=== PATIENT | male | born 1945 | race Caucasian/White ===

== ENCOUNTER 2023-09-25 12:00 | Outpatient (REF) | payer BC, SELFPAY | END 2023-09-25 12:01 | disposition home or self-care (01) | LOC: NFLDREF 12:00 | PROVIDERS: Visit Provider Nurse Practitioner | DX: R31.9 Hematuria, unspecified (principal); N30.01 Acute cystitis with hematuria | CPT/HCPCS: 87086 ==

== ENCOUNTER 2024-10-25 13:50 | Emergency (ER) | payer MEDICARE, SELFPAY ==
[2024-10-25] VITALS (11 sets, daily range): BP systolic 92–129; BP diastolic 68–78; PULSE 64–98; RESP 11–19; TEMP 35.8; O2SAT 95–98; BMI 29.8
--- OUTSIDE RECORDS SUMMARY | 2024-10-25 13:53 | XMS_ITS | Encounter Summary ---
Author Organization [facility] Address [address] [address] Phone Care Team Providers Care C D Still Operator Name Role Phone Juno Isaac MD Primary Care Provider [phone] Guillermo Lomeli MD Primary Care Provider [phone] Encounter Details Date Type Department Care Team (Late st Contact Info) Description 07/08/2022 Prep for Procedure [address] [place] [address] CLINIC ELECTROPHSIOLOGY [address] [place] [address] [id number] Brennen Reich PA-C [address] [place] [address] [phone] Social History Tobacco Use Types Packs/Day Years Used Date Smoking Tobacco: Never Smokeless Tobacco: Former Comments:no exposer to 2nd h and smoke Alcohol Use Standard Drinks/Week Comments Yes 1 (1 standard drink = 0.6 oz pur e alcohol) dash donald Humiliation, Afraid, Rape, and Kick questionnair e Answer Date Recorded Within the last year, have y ou been afraid of your partner or ex-partner? No 09/21/2019 Within the last year, have y ou been humiliated or emotionally abused in other ways by your partner or ex-partner? No 09/21/2019 Within the last year, have y ou been kicked, hit, slapped, or otherwise physically hurt by your partner or ex-partner? No 09/21/2019 Sexually Abused Not on file 09/21/2019 Social Connection and Isolation Panel [NHANES] A nswer Date Recorded In a typical week, how many times do you talk on the phone with family, friends, or neighbors? Three times a week 09/21/2019 How often do you get togethe r with friends or relatives? Twice a week 09/21/2019 How often do you attend chur ch or religion services? Never 09/21/2019 Do you belong to any clubs o r organizations such as zoroastrian groups, unions, fraternal or athletic groups, or school groups? Yes 09/21/2019 Attends Club or Organization Meetings Not on ivania e 09/21/2019 Are you , , di vorced, , never , or living with a partner? 09/21/2019 AUDIT-C Answer Date Recorded Q1: How often do you have a drink containing alc ohol? 2-4 times a month 09/21/2019 Q2: How many drinks containi ng alcohol do you have on a typical day when you are drinking? 1 or 2 09/21/2019 Q3: How often do you have si x or more drinks on one occasion? Never 09/21/2019 Overall Financial Resource Strain (CARDIA) Answe r Date Recorded How hard is it for you to pa y for the very basics like food, housing, medical care, and heating? Not hard at all 09/21/2019 PHQ-2 Answer Date Recorded PHQ-2 Total 0 06/11/2022 [facility] - Occupational Stress Questionnaire Answer Date Recorded Do you feel stress - tense, restless, nervous, or anxious, or unable to sleep at night because your mind is troubled all the time - these days? Not at all 09/21/2019 Exercise Vital Sign Answer Date Recorde d On average, how many days pe r week do you engage in moderate to strenuous exercise (like a brisk walk)? 2 days 09/21/2019 On average, how many minutes do you engage in exercise at this level? 30 min 09/21/2019 Hunger Vital Sign Answer Date Recorded Within the past 12 months, y ou worried that your food would run out before you got the money to buy more. Never true 09/21/19 20 Within the past 12 months, t he food you bought just didn't last and you didn't have money to get more. Never true 09/21/2019 PRAPARE - Transportation Answer Date Re corded In the past 12 months, has l ack of transportation kept you from medical appointments or from getting medications? No 09/09 In the past 12 months, has l ack of transportation kept you from meetings, work, or from getting things needed for daily living? No 09/21/2019 Education Answer Date Recorded What is the highest level of school you have completed or the highest degree you have received? Associate degree: occupational, technical, or vocational program 09/21/2019 Sex and Gender Information Value Date Recorded Sex Assigned at Not on file Legal Sex Male 2:55 PM EDGE STITCHER Gender Identity Not on file Sexual Orientation Not on file Occupation Industry Job Start Date Job End Date retire Not on file Not on file Not on file COVID-19 Exposure Response Date Recorded In the last 10 days, have yo u been in contact with someone who was confirmed or suspected to have Coronavirus/COVID-19? No / Unsure 07/06/2022 1:47 PM EDGE STITCHER documented as of this encounter Plan of Treatment Not on file documented as of this encounter Visit Diagnoses Not on filedocumented in this encounter Additional Health Concerns Infection Onset Date Last Indicated Resolved Time R/O Respiratory Pathogens 07/13/2022 07/13/2022 2:39 PM EDGE STITCHER R/O COVID-19 07/13/2022 07/13/2022 07/13/2022 2:39 PM EDGE STITCHER COVID-19 Confirmed 07/13/2022 07/31/2022 3 11:06 PM EDGE STITCHER documented as of this encounter Care Teams C D Still Operator Relationship Specialty Start Date End Date Juno Isaac MD [address] [place] [id number] PCP - General Family Medicine 11/30/14 04/30/24 Guillermo Lomeli MD [address] [place] [address] PCP - General Family Medicine 05/01/24 documented as of this encounter
--- OUTSIDE RECORDS SUMMARY | 2024-10-25 13:53 | XMS_ITS | Clinical Summary ---
Author Organization [facility] Address [address] [place] [address] Care Team Providers Care Retail Client Solutions Consultant Name Role Phone Votel, Guillermo Pacheco MD Primary Care Provider + Allergies Active Allergy Reactions Criticality Noted Date Comments Levofloxacin Hives High 09/15/2022 Unlisted Allergen (Include Detail In Comments) Headache Medium 09/21/2019 Beer. Caused severe headache, nausea, Beer. Caused severe headache, nausea, Medications MULTIVITAMIN ORAL Take 1 Tablet by mouth once daily in the evening. Active SAW PALMETTO ORAL Take by mouth once daily in the evening. 0 09/15/19 23 Active furosemide (LASIX) 20 mg tabletIndications: Typical atrial flutter (HC),History of cardiac radiofrequency ablation Take 1 Tablet (20 mg) by mouth once daily if needed (Goal weight 195. Take for weight increase by 3lbs in one day or 5 lbs in one week). 90 Tablet 1 10/09/19 23 Active fenofibrate (LOFIBRA) 54 mg tabletIndications: Hyperlipidemia, unspecified hyperlipidemia type Take 1 Tablet (54 mg) by mouth once daily with a meal. 90 Tablet 3 11/09/19 24 Active Terazosin HCl 10 mg capsuleIndications :HTN (hypertension) Take 1 Capsule (10 mg) by mouth at bedtime. 90 Capsule 3 11/09/19 24 Active rivaroxaban (XARELTO) 20 mg tabletIndications: PAF (paroxysmal atrial fibrillation) (HC) Take 1 Tablet (20 mg) by mouth once daily with evening meal. 90 Tablet 3 11/09/19 24 Active sotaloL (BETAPACE) 80 mg tabletIndications: Paroxysmal atrial flutter (HC),Paroxysmal atrial fibrillation (HC) Take 1 Tablet (80 mg) by mouth every 12 hours. 180 Tablet 3 02/28/20 24 Active amLODIPine (NORVASC) 5 mg tabletIndications: HTN (hypertension) Take 1 Tablet (5 mg) by mouth once daily. 90 Tablet 3 06/26/20 24 Active dilTIAZem (CARDIZEM) 30 mg tabletIndications: PAF (paroxysmal atrial fibrillation) (HC) Take 1 tablet as needed for atrial fibrillation Can repeat hour later in needed. 15 Tablet 1 09/29/19 25 Active CPAPIndications:OS A (obstructive sleep apnea) RESMED CPAP (E0601) machine for home use at pressure: 5cmw, Choice of mask (A7030 or A7034) w/full face cushion (A7031) x1/mo, nasal cushion (A7032) x2/mo, or nasal pillows (A7033) x 2/mo; Length of Need: 99 months; Frequency of use: Daily 1 Each 11 10/03/19 25 Active dilTIAZem (CARDIZEM) 30 mg tabletIndications: PAF (paroxysmal atrial fibrillation) (HC) Take 1 tablet as needed for atrial fibrillation Can repeat hour later in needed. 15 Tablet 1 11/09/19 24 025 Discontin ued(Reord er (E-cancel not sent)) Active Problems Problem Noted Date Diagnosed Date Acute on chronic diastolic (congestive) heart fa ilure 07/11/2024 Chronic diastolic (congestive) heart failure 10/2023 Infrarenal abdominal aortic aneurysm (AAA) witho ut rupture 10/27/2023 Assessment & Plan (07/11/2024 1:25 PM OYSTER GRADER): Repeat abdomen ultrasound October 2026 A-fib 07/20/2023 High cholesterol 07/20/2023 HTN (hypertension) 07/20/2023 BPH (benign prostatic hyperplasia) 07/20/2023 Encounters Date Type Department Care Team Description 10/25/2024 9:50 AM CDT Nurse/Clinic Staff Only [facility] [address] [place] [address] Cardiovascular Diagnostic Testing (12 lead done for MHI) 10/25/2024 Orders Only [facility] [address] [place] [address] Ellen Esquivel MD 1 scan: (1-Ord) NFLD-EKG-10/25/24 10/25/2024 Travel 10/24/2024 Telephone [facility] [address] [place] [address] Ellen Esquivel MD Error-please disregard 10/24/2024 Telephone [facility] [address] [place] [address] Ellen Esquivel MD Atrial Fibrillation 10/03/2024 4:00 PM OYSTER GRADER Office Visit [facility] [address] [place] [address] Augustine Coburn MD Sleep Consult 10/03/2024 Travel 10/02/2024 Orders Only [facility] Scanner 1 scan: (1-Ord) RESNED, COMPLIANCE REPORT 1-26-25 - 2-24-25, 10/02/2024 09/29/2024 Telephone [facility] [place] [address] [place] [address] Ellen Esquivel MD Refill Request 09/11/2024 1:00 PM OYSTER GRADER Office Visit [facility] [address] [place] [address] Sim Helms MD Musculoskeletal Problem (Follow up bilateral shoulder pain ) 09/11/2024 Travel 07/27/2024 Telephone [facility] [address] [place] [address] Ellen Esquivel MD Blood Pressure from Last 3 Months Immunizations Immunization Administration Dates Next Due COVID-19 vaccine (Moderna 100mcg/0.5mL) [facility] [place] 10/01/2020,09/03/2020 Pneumococcal Poly,23-Valent (Pneumovax) 08/30/19 14 Pneumococcal conj 13-Valent (Prevnar 13) 018 Td (Age >=7 Years) 11/27/1996,02/27/1993 Tdap, Unspecified 06/16/2021,05/07/2010 Family History Medical History Relation Name Comments Diabetes Brother Indra Lung cancer Father Skin cancer Maternal Grandmother Rupesh Heart failure Mother Relation Name Status Comments Brother Indra Alive Father Maternal Grandmother Rupesh Alive Mother Social History Tobacco Use Types Packs/Day Years Used Date Smoking Tobacco: Never Smokeless Tobacco: Never Tobacco Cessation:Counseling Given: Yes Alcohol Use Standard Drinks/Week Comments Not Currently 0 (1 standard drink = 0.6 oz pur e alcohol) rare PHQ-2 Answer Date Recorded PHQ-2 TOTAL SCORE 0 07/11/2024 Social Connections Answer Date Recorded Do you often feel lonely or isolated from those around you? 0 07/11/2024 Financial Resource Strain Answer Date R ecorded Difficulty of Paying Living Expenses 3 07/11/2024 Difficulty of Paying Living Expenses Not on file 07/11/2024 Food Insecurity Answer Date Recorded Do you worry your food will run out before you are able to buy more? 1 07/11/2024 Transportation Needs Answer Date Record ed Does lack of transportation keep you from medica l appointments? 1 07/11/2024 Does lack of transportation keep you from work, meetings or getting things that you need? 1 07/11/2024 Housing Stability Answer Date Recorded What is your housing situation today? 1 07/11/2024 Utilities Answer Date Recorded Do you have trouble paying f or utilities (for example, heat, electricity, water, phone)? 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 Not on file Not on file Obstetrics History Last Filed Vital Signs Vital Sign Reading Time Taken Comments Blood Pressure 124/80 10/25/2024 10:10 AM CDT Pulse 84 10/25/2024 10:10 AM CDT variable rate in afib/aflutter on 12 lead Temperature 36.7 C (98.1 F) 09/11/2024 1:06 PM OYSTER GRADER Respiratory Rate 16 12/08/2023 12:4 0 PM CDT Oxygen Saturation 97% 10/25/2024 10: 10 AM CDT Inhaled Oxygen Concentration - - Weight 102 kg (224 lb 12.8 oz) 10/03/2024 3:49 PM OYSTER GRADER Height 182.5 cm (5' 11.85) 10/03/2024 3:49 PM OYSTER GRADER Body Mass Index 30.62 10/03/2024 3:49 PM OYSTER GRADER Plan of Treatment Health Maintenance Due Date Last Done Comments Hepatitis C screening for ag e 18-79 1963 Zoster (shingles) series for age 50+ (1 of 2) 1995 RSV vaccine for adults or (1 - 1-dose 75+ series) 2020 COVID-19 vaccine series ( season) 2024 10/01/2020, 09/03/2020 Influenza Vaccine (#1) 2024 Depression screening for age 12+ 07/11/2025 07/11/20, 10/12/2023 Medicare Wellness for age 65+ 07/12/2025 07/11/2024, 07/20/2023 BMI (ht and wt on same day) for age 18+ 10/03/2025 10/03/2024, 07/11/2024, 10/12/2023, Additional history exists Tetanus booster 06/16/2031 06/16/2021, 04/10, 11/27/1996, Additional history exists Pneumococcal series for age 50+ Completed 8, 08/30/2013 Tdap Completed 06/16/2021, 05/07/2010 Procedures Procedure Name Priority Date/Time Associated Diagnosis Comments EKG 12 LEAD Routine 10/25/2024 11:55 AM CDT Chronic atrial fibrillation (HC) SCAN-DIAGNOSTIC REPORT 10/02/2024 12:00 AM OYSTER GRADER from Last 3 Months Results * EKG 12 LEAD (10/25/2024 11:55 AM CDT) us Ellen Esquivel MD EKG ORD Final R esult * SCAN-DIAGNOSTIC REPORT (10/02/2024 12:00 AM OYSTER GRADER) us Scanner OTHER Final Result from Last 3 Months Insurance BLUE CROSS MEDICARE ADVANTAGE MR MEDICARE PART A HB ONLY Advance Directives * Full Code (Latest Code Status on File) Date Activated Date Inactivated Comments 12/08/2023 10:03 AM 12/08/2023 2:49 PM Question Answer Comments Code Status Discussion: Unable to Assess Preferences, Provider to review later * Full Code Date Activated Date Inactivated Comments 12/08/2023 10:03 AM 12/08/2023 10:03 AM Question Answer Comments Code Status Discussion: Unable to Assess Preferences, Provider to review later * Full Code Date Activated Date Inactivated Comments 09/16/2022 9:25 AM 09/16/2022 3:34 PM Question Answer Comments Code Status Discussion: Other Care Teams Retail Client Solutions Consultant Relationship Specialty Start Date End Date Votel, Guillermo Pacheco MD [address] [place] [address] PCP - General Family Practice 01/18/24
--- OUTSIDE RECORDS SUMMARY | 2024-10-25 13:53 | XMS_ITS | Clinical Summary ---
Author Organization [facility] Address [address] [address] Care Team Providers Care Breeding Technician Name Role Phone Unavailable Primary Care Provider Unavailabl e Source Comments Patient records contain information from all sites at [facility]. For routine questions regarding patient records, call [phone] during business hours, M-F 8:00 AM - 5:00 PM Central Time. Record requests for emergency care only can be directed to [phone] at any time.[facility] Allergies No known active allergies Social History Tobacco Use Types Packs/Day Years Used Date Smoking Tobacco: Never Assessed Nutrition Answer Date Recorded Nutrition: EVOO Fat Source Unknown 09/15 Nutrition: Servings of Fruits/Vegetables per Day Not on file 09/15/2022 Dental Answer Date Recorded Dental: Regular Dentist Unknown 09/15/19 Sex and Gender Information Value Date Recorded Sex Assigned at Not on file Legal Sex Male 2:25 PM IT SUPPORT SPECIALIST Gender Identity Not on file Sexual Orientation Not on file Plan of Treatment Health Maintenance Due Date Last Done Comments Hepatitis C Screening 1945 Zoster Vaccines (1 of 2) 1995 RSV vaccine - (32-3 6 weeks) or 60+ years (1 - 1-dose 75+ series) 2020 COVID-19 Vaccine (3 - 2023-2 5 season) 2024 10/01/2020, 09/03/2020 Influenza Vaccine (#1) 2024 Depression Screening (Annual PHQ-2) 08/09/2024 Fall Risk Screen (Annual) 08/09/2024 DTaP,Tdap,and Td Vaccines (3 - Td or Tdap) 06/16/2031 06/16/2021, 05/07/2010, 02/27/1993 Pneumococcal vaccine (50+ years) Completed 03/23/2018, 08/30/2013 IPV Vaccines Aged Out No longer eligi ble based on patient's age to complete this topic Insurance [facility]
--- OUTSIDE RECORDS SUMMARY | 2024-10-25 13:53 | XMS_ITS | Clinical Summary ---
Author Organization [facility] Address [address] [address] Phone Care Team Providers Care Vat House Supervisor Name Role Phone Guillermo Lomeli MD Primary Care Provider [phone] Allergies Active Allergy Reactions Criticality Noted Date Comments Food Headache Medium 09/21/2019 Beer. Caused severe headache, nausea, Medications Nutritional Supplements (GLUCOSAMINE COMPLEX) TABS Take 1 Tablet by mouth every evening. FlexaMin- Glucosamine with Chondrointin, Vit D 3 2000 IU + MSM 2 Active multiple vitamin with minerals (CENTRUM SILVER) tablet Take 1 Tablet by mouth every evening. 2 Active Saw [place], Serenoa repens, 450 MG CAPS Take 900 mg by mouth every evening. 3 Active amLODIPine (Norvasc) 5 MG tablet Take 1 Tablet by mouth one time a day. 90 Tablet 1 2 Active celecoxib (CeleBREX) 200 MG capsule Take 1 Capsule by mouth two times a day. With food 60 Capsule 2 Active fenofibrate (Tricor) 54 MG tabletIndication s:Dyslipidemia TAKE 1 TABLET BY MOUTH EVERY EVENING 90 Tablet 3 2 Active dilTIAZem CD (Cardizem CD) 120 MG 24 hour extended release capsule Take 2 Capsules by mouth one time a day. Do not open, chew, or crush; swallow whole. 60 Capsule 5 2 Active rivaroxaban (Xarelto) 20 MG tabletIndication s:HTN (hypertension), benign,Typical atrial flutter (HCC) Take 1 Tablet by mouth every evening. 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 Overview (07/29/2015): IMO Update [facility] arthritis 01/02/2014 OA (osteoarthritis) of knee 01/02/2014 Diverticula of colon 10/15/2011 Overview (11/28/2011): IMO Update 05/19 Dyslipidemia 11/26/2008 Resolved Problems Problem Noted Date Diagnosed Date Resolved Date Posterior right knee pain 10/23/2015 Immunizations Name Administration Dates Next Due COVID-19 mRNA Vaccine (Moderna - 18+ Yrs) 2020,09/03/2020 Pneumococcal Conjugate, (Prevnar)13-valent 03/23 Pneumovax 23 08/30/2013 TD >7yrs With Preservative 11/27/1996,02/27/1993 Tdap (7 years and older) 06/16/2021,05/07/2010 Tdap-Tetanus, Diphtheria, Pertussis 11+ Yrs 04/10 Surgical History Surgery Date Site/Laterality Comments COLONOSCOPY,FLEX,DIAGNOSTIC 09/23/2011 COLONOSCOPY 05/03/2018 no gross findings, sub-optimal prep, repeat in 5-7 years Medical History Medical History Date Comments Erectile dysfunction Overactive bladder Dyslipidemia Shoulder pain, bilateral needs r eplacement of both shoulders due to spurs Family History Medical History Relation Comments Cardiovascular Disease Brother 1 Diabetes Brother 1 Cancer Brother 2 Skin No Known Problems Brother 3 Cancer Daughter 1 skin Other Daughter 1 cysts on ovaries Other Daughter 2 gluten intoleran ce Cancer Father lung cancer,dece ased,age 62 Other Mother pacemaker, parki nson No Known Problems Sister Neuro Disease Son ruptured disc wi th surgery Other Son alopecia Relation Status Comments Brother 1 Brother 2 Alive Brother 3 Alive Daughter 1 Alive Daughter 2 Alive Father (Age 62) Mother Sister Alive Son Alive Social History Tobacco Use Types Packs/Day Years Used Date Smoking Tobacco: Never Smokeless Tobacco: Former Tobacco Cessation:Counseling Given: Not Answered Comments:no exposer to 2nd hand smoke Alcohol Use Standard Drinks/Week Comments Yes 1 (1 standard drink = 0.6 oz pur e alcohol) apple cider Humiliation, Afraid, Rape, and Kick questionnair e Answer Date Recorded Within the last year, have y ou been afraid of your partner or ex-partner? No 07/31/2022 Within the last year, have y ou been humiliated or emotionally abused in other ways by your partner or ex-partner? No Within the last year, have y ou been kicked, hit, slapped, or otherwise physically hurt by your partner or ex-partner? No 07/31/2022 Within the last year, have y ou been raped or forced to have any kind of sexual activity by your partner or ex-partner? No 07/31/2022 Social Connection and Isolat ion Panel [NHANES] Answer Date Recorded In a typical week, how many times do you talk on the phone with family, friends, or neighbors? More than three times a week 07/31/2022 How often do you get togethe r with friends or relatives? More than three times a week 07/31/2022 How often do you attend chur or advent services? Never 07/31/2022 Do you belong to any clubs o r organizations such as zoroastrianism groups, unions, fraternal or athletic groups, or school groups? No 07/31/2022 How often do you attend meet ings of the clubs or organizations you belong to? Never 07/31/2022 Are you , , di vorced, , never , or living with a partner? 07/31/2022 AUDIT-C Answer Date Recorded Q1: How often do you have a drink containing alcohol? Never 07/31/2022 Q2: How many drinks containi ng alcohol do you have on a typical day when you are drinking? Patient does not drink Q3: How often do you have si x or more drinks on one occasion? Never 07/31/2022 Overall Financial Resource Strain (CARDIA) Answe r Date Recorded How hard is it for you to pa y for the very basics like food, housing, medical care, and heating? Not hard at all 07/31/2022 PHQ-2 Answer Date Recorded PHQ-2 Total 0 07/31/2022 [facility] - Occupational Stress Questionnaire Answer Date Recorded Do you feel stress - tense, restless, nervous, or anxious, or unable to sleep at night because your mind is troubled all the time - these days? Not at all 07/31/2022 Exercise Vital Sign Answer Date Recorde d On average, how many days pe r week do you engage in moderate to strenuous exercise (like a brisk walk)? 0 days 07/31/2022 On average, how many minutes do you engage in exercise at this level? 0 min 07/31/2022 Hunger Vital Sign Answer Date Recorded Within the past 12 months, y ou worried that your food would run out before you got the money to buy more. Never true 07/31/20 22 Within the past 12 months, t he food you bought just didn't last and you didn't have money to get more. Never true 07/31/2022 PRAPARE - Transportation Answer Date Re corded In the past 12 months, has l ack of transportation kept you from medical appointments or from getting medications? No 07/10 In the past 12 months, has l ack of transportation kept you from meetings, work, or from getting things needed for daily living? No 07/31/2022 Education Answer Date Recorded What is the highest level of school you have completed or the highest degree you have received? Associate degree: occupational, technical, or vocational program 09/21/2019 Sex and Gender Information Value Date Recorded Sex Assigned at Not on file Legal Sex Male 2:55 PM CULVERT INSTALLER Gender Identity Not on file Sexual Orientation Not on file Occupation Industry Job Start Date Job End Date retire Not on file Not on file Not on file Obstetrics History Last Filed Vital Signs Vital Sign Reading Time Taken Comments Blood Pressure 128/80 08/05/2022 2:19 PM CULVERT INSTALLER Pulse 45 08/05/2022 2:19 PM CULVERT INSTALLER Temperature 37.4 C (99.3 F) 08/05/2022 2:19 PM CULVERT INSTALLER Respiratory Rate 16 08/05/2022 2:19 PM CULVERT INSTALLER Oxygen Saturation 96% 08/05/2022 2:19 PM CULVERT INSTALLER Inhaled Oxygen Concentration - - Weight 88.3 kg (194 lb 10.7 oz) 08/05/2022 2:19 PM CULVERT INSTALLER Height 182 cm (5' 11.65) 08/05/2022 2:19 PM CULVERT INSTALLER Body Mass Index 26.66 08/05/2022 2:19 PM CULVERT INSTALLER Plan of Treatment Health Maintenance Due Date Last Done Comments Shingrix (Zoster recombinant) vaccine (Standing Order) (1 of 2) 1995 RSV Vaccination (60+ yrs) (Abrysvo/Arexvy) (1 - 1-dose 75+ series) 2020 COLONOSCOPY Q 5 YRS 05/03/2023 05/03/2018, 2 MEDICARE AWV 07/31/2023 07/31/2022, 09/09, 09/21/2019, Additional history exists COVID-19 Vaccine ( season) 2024 06/20/2021, 10/01/2020, 09/03/2020 Influenza Vaccine Seasonal (Standing Order) (#1) 2024 TETANUS (Standing Order) 06/16/2031 021, 05/07/2010, 05/07/2010, Additional history exists Pneumococcal Vaccine: 50+ yrs (Standing Order) Completed 03/23/2018, 08/30/2013 PERTUSSIS (Standing Order) Completed 06/16, 05/07/2010, 05/07/2010 HPV Vaccine (Standing Order) Aged Out No longer eligible based on patient's age to complete this topic Hepatitis B Vaccine (Standing Order) Aged Out No longer eligible based on patient's age to complete this topic Procedures Procedure Name Priority Date/Time Associated Diagnosis Comments COLONOSCOPY,FLEX,DIAGNOSTIC Routine 05/03/2018 from Last 3 Months or Most Recently Relevant to Health Maintenance Results * COLONOSCOPY,FLEX,DIAGNOSTIC (05/03/2018) us Provider Abstract MD VIGIL PROCEDURES Edited Resu lt - Final from Last 3 Months or Most Recently Relevant to Health Maintenance Insurance MEDICARE CO[employer] Advance Directives For more information, please contact: [phone] * Full Code (Latest Code Status on File) Date Activated Date Inactivated Comments 06/24/2022 9:03 AM 06/24/2022 3:47 PM Care Teams Vat House Supervisor Relationship Specialty Start Date End Date Votel, Guillermo Israel MD [address] [place] [address] PCP - General Family Medicine 05/01/24
--- NOTE | 2024-10-25 14:22 | ED.GENADULT ---
HPI - General Adult General Chief complaint: Arrhythmia/Palpitations Stated complaint: A-Fib Time Seen by Provider: 10/25/24 13:52 History of Present Illness HPI narrative: [age] year white male with history of AFib flutter, sounds like he has had an ablation in the past. He has paroxysmal atrial fibrillation. He sees Dr sheikh at [facility] at [facility] but sees her in [place]. He got an EKG this morning and was told to come in to get his heart ?restarted and ?. He has not been on his novel anticoagulant for about 2 and half years, he has not missed any medication days. He is rate controlled in the 90s, it looks to be in atrial fibrillation. He is not real symptomatic other than slightly short of breath with exertion when he was ?feeding the chickens this morning in a pool. He lives with his and daughter just outside in [place]. He is on sotalol 80 mg daily and right of 0 extremity arrive ox of van 20 mg daily patient takes Lasix as well as diltiazem. He is also on amlodipine. Channel Development Manager recommended he be seen today. He is not having chest pain. He has had no cold flu fever. He last ate yesterday. Related Data Home Medications ?Medication ?Instructions ?Recorded ?Confirmed fenofibrate 54 mg tablet 54 mg PO DAILY 09/25/23 10/25/24 furosemide 20 mg tablet 20 mg PO DAILY 09/25/23 10/25/24 rivaroxaban 20 mg tablet (Xarelto) 20 mg PO DAILY 09/25/23 10/25/24 sotalol 80 mg tablet 80 mg PO 09/25/23 09/25/23 terazosin 10 mg capsule 10 mg PO DAILY 09/25/23 10/25/24 amlodipine 5 mg tablet 5 mg PO DAILY 10/25/24 10/25/24 diltiazem HCl 30 mg tablet PO 10/25/24 Allergies Allergy/AdvReac Type Severity Reaction Status Date / Time alcohol Allergy Intermediate Headache Verified 10/25/24 13:56 Review of Systems Status of ROS: Reports: 6 or more systems reviewed and unremarkable except as noted in History and below Exam Narrative: Exam Narrative: Objective: Vital signs are within normal limits axes Alert or x3 very pleasant man retired from [employer] 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 Abdomen benign soft Extremities are no edema neurologic nonfocal Const: Vital Signs, click to edit/add: Vital Signs - 24 hr 10/25/24 13:52 10/25/24 14:08 10/25/24 14:12 Temperature 96.5 F L Pulse Rate 77 Pulse Rate [Pulse Oximeter] 88 Respiratory Rate 16 15 19 Blood Pressure 92/78 Blood Pressure [Ri ght Upper Arm] 129/76 Pulse Oximetry 98 97 Oxygen Delivery Me thod Room Air 10/25/24 14:15 10/25/24 14:30 10/25/24 14:32 Temperature Pulse Rate 98 97 64 Pulse Rate [Pulse Oximeter] Respiratory Rate 11 L 18 16 Blood Pressure 105/72 Blood Pressure [Ri ght Upper Arm] Pulse Oximetry 97 95 96 Oxygen Delivery Me thod 10/25/24 14:45 10/25/24 15:00 10/25/24 15:01 Temperature Pulse Rate 73 Pulse Rate [Pulse Oximeter] Respiratory Rate 17 15 Blood Pressure 96/68 Blood Pressure [Ri ght Upper Arm] Pulse Oximetry 98 Oxygen Delivery Me thod 10/25/24 15:02 10/25/24 15:06 Temperature Pulse Rate Pulse Rate [Pulse Oximeter] Respiratory Rate 17 Blood Pressure 96/68 Blood Pressure [Ri ght Upper Arm] Pulse Oximetry 95 Oxygen Delivery Me thod Nasal Cannula Course Vital Signs Vital signs: Initial Vital Signs Temperature 96.5 F L 10/25/24 13:52 Temperature Source Temporal Artery Scan 10/25/24 13:52 Pulse Rate 88 10/25/24 13:52 Pulse Rhythm Irregular 10/25/24 13:52 Respiratory Rate 16 10/25/24 13:52 Blood Pressure 129/76 10/25/24 13:52 Blood Pressure Mean 93 10/25/24 13:52 Blood Pressure Position Sitting 10/25/24 13:52 Pulse Oximetry 98 10/25/24 13:52 Oxygen Delivery Method Room Air 10/25/24 13:52 Vital Signs Temperature 96.5 F L 10/25/24 13:52 Pulse Rate 88 10/25/24 13:52 Respiratory Rate 16 10/25/24 13:52 Blood Pressure 129/76 10/25/24 13:52 Pulse Oximetry 98 10/25/24 13:52 Oxygen Delivery Method Room Air 10/25/24 13:52 Temperature 96.5 F L 10/25/24 13:52 Pulse Rate 73 10/25/24 14:45 Respiratory Rate 17 10/25/24 15:02 Blood Pressure 96/68 10/25/24 15:02 Pulse Oximetry 95 10/25/24 15:06 Oxygen Delivery Method Nasal Cannula 10/25/24 15:06 Medications Administered Medications: Discontinued Medications Generic Name Dose Route Start Last Admin Trade Name Meir PRN Reason Stop Dose Admin Sodium Chloride 1,000 mls @ 6,000 mls/hr 10/25/24 14:30 10/25/24 15:22 0.9 % Sodium Chloride 1000 Ml IV 10/25/24 14:39 Infused .Q10M LUANN Infusion Propofol 100 mg 10/25/24 14:57 10/25/24 14:55 Propofol 10 Mg/Ml Inj IVP 10/25/24 14:58 100 mg ONCE ONE Administration Medical Decision Making [facility] Narrative Medical decision making narrative: [age] year white male with a history of what sounds like paroxysmal atrial fibrillation with some slight symptomatic shortness of breath today he is reports the AFib has been present for about 3 days. He has been on his novel anticoagulant has not missed any. Will discuss with his hard metals engraver hand his treatment course. Likely synchronized cardioversion would be recommended. Will use sedation with propofol. Will get RT to be present. Currently his EKG shows by my read a flutter with variable 82 av block incomplete right bundle-branch block heart rate is controlled ventricular response at 93 beats per minute. Will check labs and give IV fluid as well. Addendum 2:35 p.m.: The patient had I had a discussion with Dr. Neal [facility] regarding the patient's condition. He had his chart and he was reviewing it, he felt also that this is a convertible rhythm will do synchronized cardioversion and see if we can cardiovert him, will have him follow-up with Dr. MARTIN [facility] for recheck. He will continue on his same medications. Will have RT present. Will use propofol for sedation. Addendum 3:00 p.m. after informed consent verbally, and the approval of his hard metals engraver hand team Dr. Neal, the patient was cardioverted pauline Franco with 100 joules of energy biphasic cardioversion. RT was present. He tolerated this well. He got [address] Caicedo administered the propofol and anesthesia. The cardioversion was successfully per to be in sinus rhythm on telemetry, post cardioversion EKG is pending. Will of watch him and allow him to wake up improve if he can walk in drink water he can get a ride home and likely continue his same medications, follow-up with Dr. Kelly of [facility] within the next week to 2 weeks. With return to ED sooner problems or concerns. This would be critical care time for the cardioversion and for his observation period in the ER would give him hour and 15 minutes of critical care time. Of note is the patient's troponin is 0, his post cardioversion EKG shows sinus rhythm with first-degree AV block incomplete right bundle yony block no acute ST T wave changes. When he is awake and alert to be allowed to go home. Continue his same medications. Lab Data Labs: Lab Results 10/25/24 10/25/24 10/25/24 Range/Units 14:19 14:30 14:38 WBC 5.78 (4.50-11.00) K/uL RBC 3.58 L (4.30-5.90) m/uL Hgb 11.9 L (13.5-17.5) gm/dL Hct 35.4 L (37.0-53.0) % MCV 99 (80-100) fL MCH 33 (26-34) pg MCHC 34 (32-36) gm/dL RDW Coeff of Daniel 12.1 (11.5-15.5) % Plt Count 235 (140-440) K/uL Neut % (Auto) 67.6 (42.0-72.0) % Lymph % (Auto) 18.7 L (20-44) % Hayes % (Auto) 11.2 H (0.0-11.0) % Eos % (Auto) 1.6 (0.0-7.0) % Baso % (Auto) 0.7 (0.0-3.0) % Neut # (Auto) 3.91 (1.7-7.0) K/uL Lymph # (Auto) 1.10 (0.90-2.90) K/uL Hayes # (Auto) 0.60 (0.00-0.90) K/UL Eos # (Auto) 0.09 (0.00-0.50) K/uL Baso # (Auto) 0.04 (0.00-0.30) K/uL Abs Immat Gran (auto) 0.01 (0.00-0.30) K/uL Imm/Tot Granulo (auto) 0.2 % INR 1.73 H (0.91-1.10) APTT 37 H (23-33) Seconds Sodium 139 (135-149) mmol/L Potassium 4.4 (3.6-5.1) mmol/L Chloride 106 (96-114) mmol/L Carbon Dioxide 26 (20-32) mmol/L Anion Gap 7 (7-15) mEq/L BUN 19 (7-30) mg/dL Creatinine 1.3 (0.5-1.5) mg/dL Estimated Creat Clear 50.57 Estimated GFR 56 ml/min Glucose 93 (60-115) mg/dL Calcium 8.6 (8.4-10.6) mg/dL Total Bilirubin 0.5 (0.1-1.5) mg/dL Direct Bilirubin 0.3 (0.0-0.5) mg/dL AST 26 (12-35) U/L ALT 14 (4-50) U/L Alkaline Phosphatase 46 (40-150) U/L C-Reactive Protein 0.8 (0.5-1.0) mg/dL NT-Pro-B Natriuret Pep 940 pg/mL Total Protein 7.1 (6.0-8.3) g/dL Albumin 4.6 (3.3-5.0) g/dL POC Troponin I 0.00 L (0.01-0.04) ng/ml Discharge Plan Discharge Clinical Impression: Atrial flutter Patient Disposition: Home w/ Parent or Adult Condition: Improved Additional Instructions: Continue home medications, recommend follow-up with her hard metals engraver hand within the next 1-2 weeks. Light activity recommended for the next couple of days, increase her fluid intake and drink plenty water. Return if problems or concerns. Activity Level: Light activity Discharge Diet: Low Fat/Low Cholesterol Prescriptions: No Action Xarelto 20 mg tablet 20 mg PO DAILY fenofibrate 54 mg tablet 54 mg PO DAILY sotalol 80 mg tablet 80 mg PO terazosin 10 mg capsule 10 mg PO DAILY furosemide 20 mg tablet 20 mg PO DAILY amlodipine 5 mg tablet 5 mg PO DAILY diltiazem HCl 30 mg tablet PO Follow Up/Referrals: Provider,Not a Local [Primary Care Provider] - Stand Alone Forms: GITR Info Instructions
[2024-10-25] MEDS: 0.9 % SODIUM CHLORIDE 1000 ml 1,000 ML 6000 ML IV (14:40)
[2024-10-25 14:42] LABS: Basophils Absolute Auto 0.04 K/uL (0.00-0.30); Basophils Percent Auto 0.7 % (0.0-3.0); Eosinophils Absolute Auto 0.09 K/uL (0.00-0.50); Eosinophils Percent Auto 1.6 % (0.0-7.0); Hematocrit 35.4 % (37.0-53.0); Hemoglobin* 11.9 gm/dL (13.5-17.5); Immature Granulocytes Abs Auto 0.01 K/uL (0.00-0.30); Immature Granulocytes Pct Auto 0.2 %; Lymphocytes Percent Auto 18.7 % (20-44); Mean Corpuscular HGB Conc 34 gm/dL (32-36); Mean Corpuscular Hemoglobin 33 pg (26-34); Mean Corpuscular Volume 99 fL (80-100); Monocytes Percent Auto 11.2 % (0.0-11.0); Neutrophils Absolute Auto 3.91 K/uL (1.7-7.0); Neutrophils Percent Auto 67.6 % (42.0-72.0); Platelet Count* 235 K/uL (140-440); RDW Coefficient of Variation % 12.1 % (11.5-15.5); Red Blood Count 3.58 m/uL (4.30-5.90); White Blood Count* 5.78 K/uL (4.50-11.00)
[2024-10-25 14:43] LABS: Slide Review Reflex No
[2024-10-25] MEDS: PROPOFOL 10 MG/ML INJ 100 MG IVP (14:55)
--- OUTSIDE RECORDS SUMMARY | 2024-10-25 14:55 | XMS_ITS | Clinical Summary ---
Author Organization [facility] Address [address] [place] [address] Care Team Providers Care City Director Name Role Phone Unavailable Primary Care Provider Unavailabl e Source Comments Patient records contain information from all sites at [facility]. For routine questions regarding patient records, call [phone] during business hours, M-F 8:00 AM - 5:00 PM Central Time. 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
--- OUTSIDE RECORDS SUMMARY | 2024-10-25 14:55 | XMS_ITS | Clinical Summary ---
Author Organization [facility] Address [address] [place] [id number] Care Team Providers Care Coffee Grower Name Role Phone Votel, Guillermo Pacheco MD [...] 10/27/2023 Assessment & Plan (07/11/2024 1:25 PM FEATHER DUSTER WINDER): Repeat abdomen ultrasound October 2026 A-fib 07/20/2023 High cholesterol 07/20/2023 HTN (hypertension) 07/20/2023 BPH (benign prostatic hyperplasia) 07/20/2023 Encounters Date Type Department Care Team Description 10/25/2024 9:50 AM CDT Nurse/Clinic Staff Only [facility] [address] [place] [address] Cardiovascular Diagnostic Testing (12 lead done for MHI) 10/25/2024 Orders Only [facility] [address] [place] [address] Ellen Esquivel MD 1 scan: (1-Ord) NFLD-EKG-10/25/24 10/25/2024 Travel 10/24/2024 Telephone [facility] [place] [address] [place] [address] Ellen Esquivel MD Error-please disregard 10/24/2024 Telephone [facility] [address] [place] [address] Ellen Esquivel MD Atrial Fibrillation 10/03/2024 4:00 PM FEATHER DUSTER WINDER Office Visit [facility] [address] [place] [address] Augustine Coburn MD Sleep Consult 10/03/2024 Travel 10/02/2024 Orders Only [facility] Scanner 1 scan: (1-Ord) RESNED, COMPLIANCE REPORT 1-26-25 - 2-24-25, 10/02/2024 09/29/2024 Telephone [facility] [place] [address] [place] [address] Ellen Esquivel MD Refill Request 09/11/2024 1:00 PM FEATHER DUSTER WINDER Office Visit [facility] [address] [place] [address] Sim Helms MD Musculoskeletal Problem (Follow up bilateral shoulder pain ) 09/11/2024 Travel 07/27/2024 Telephone [facility] [address] [place] [address] Ellen Esquivel MD Blood Pressure from Last [...] on file Legal Sex Male 7:43 AM FEATHER DUSTER WINDER Gender Identity Not on file Sexual Orientation Not on file 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 file Not on file Obstetrics History Last Filed Vital Signs Vital Sign Reading Time Taken Comments Blood Pressure 124/80 10/25/2024 10:10 AM CDT Pulse 84 10/25/2024 10:10 AM CDT variable rate in afib/aflutter on 12 lead Temperature 36.7 C (98.1 F) 09/11/2024 1:06 PM FEATHER DUSTER WINDER Respiratory Rate 16 12/08/2023 12:4 0 PM CDT Oxygen Saturation 97% 10/25/2024 10: 10 AM CDT Inhaled Oxygen Concentration - - Weight 102 kg (224 lb 12.8 oz) 10/03/2024 3:49 PM FEATHER DUSTER WINDER Height 182.5 cm (5' 11.85) 10/03/2024 3:49 PM FEATHER DUSTER WINDER Body Mass Index 30.62 10/03/2024 3:49 PM FEATHER DUSTER WINDER Plan of Treatment Health Maintenance Due Date [...] fibrillation (HC) SCAN-DIAGNOSTIC REPORT 10/02/2024 12:00 AM FEATHER DUSTER WINDER from Last 3 Months Results * EKG 12 LEAD (10/25/2024 11:55 AM CDT) us Ellen Esquivel MD EKG ORD Final R esult * SCAN-DIAGNOSTIC REPORT (10/02/2024 12:00 AM FEATHER DUSTER WINDER) us Scanner OTHER Final Result from Last [...] Comments Code Status Discussion: Other Care Teams Coffee Grower Relationship Specialty Start Date End Date Votel, Guillermo Pacheco MD [address] [place] [address] PCP - General Family Practice 01/18/24
--- OUTSIDE RECORDS SUMMARY | 2024-10-25 14:55 | XMS_ITS | Encounter Summary ---
Author Organization [facility] Address [address] [address] Phone Care Team Providers Care Missile Control Pilot Name Role Phone Juno Isaac MD Primary Care Provider [phone] Guillermo Lomeli MD Primary Care Provider [phone] Encounter Details Date Type Department Care Team (Late st Contact Info) Description 07/08/2022 Prep for Procedure [address] [place] [address] CLINIC ELECTROPHSIOLOGY [address] [place] [address] [id number] Brennen Reich PA-C [address] [place] [address] [phone] Social History Tobacco Use Types Packs/Day Years [...] often do you attend chur ch or temple services? Never 09/21/2019 Do you belong to any clubs o r organizations such as samaritan groups, unions, fraternal or athletic groups, or [...] Answer Date Recorded PHQ-2 Total 0 06/11/2022 [facility] - Occupational [...] on file Legal Sex Male 2:55 PM AFTERNOON NANNY Gender Identity Not on file Sexual Orientation Not on file Occupation Industry Job Start Date Job End Date retire Not on file Not on file Not on file COVID-19 Exposure Response Date Recorded In the last 10 days, have yo u been in contact with someone who was confirmed or suspected to have Coronavirus/COVID-19? No / Unsure 07/06/2022 1:47 PM AFTERNOON NANNY documented as of this encounter Plan of Treatment Not on file documented as of this encounter Visit Diagnoses Not on filedocumented in this encounter Additional Health Concerns Infection Onset Date Last Indicated Resolved Time R/O Respiratory Pathogens 07/13/2022 07/13/2022 2:39 PM AFTERNOON NANNY R/O COVID-19 07/13/2022 07/13/2022 07/13/2022 2:39 PM AFTERNOON NANNY COVID-19 Confirmed 07/13/2022 07/31/2022 3 11:06 PM AFTERNOON NANNY documented as of this encounter Care Teams Missile Control Pilot Relationship Specialty Start Date End Date Juno Isaac MD [address] [place] [id number] PCP - General Family Medicine 11/30/14 04/30/24 Guillermo Lomeli MD [address] [place] [address] PCP - General Family Medicine 05/01/24 documented as of this encounter
--- OUTSIDE RECORDS SUMMARY | 2024-10-25 14:55 | XMS_ITS | Clinical Summary ---
Author Organization [facility] Address [address] [address] Phone Care Team Providers Care Substation Designer Name Role Phone Guillermo Lomeli MD Primary Care Provider [phone] Allergies Active Allergy Reactions Criticality Noted Date Comments Food Headache Medium 09/21/2019 Beer. Caused severe headache, nausea, Medications Nutritional Supplements (GLUCOSAMINE COMPLEX) TABS Take 1 Tablet by mouth every evening. FlexaMin- Glucosamine with Chondrointin, Vit D 3 2000 IU + MSM 2 Active multiple vitamin with minerals (CENTRUM SILVER) tablet Take 1 Tablet by mouth every evening. 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 Never 07/31/2022 Do you belong to any clubs o r organizations such as roman catholic groups, unions, fraternal or athletic groups, or [...] Answer Date Recorded PHQ-2 Total 0 07/31/2022 [facility] - Occupational Stress [...] on file Legal Sex Male 2:55 PM CUFF SETTER LOCKSTITCH Gender Identity Not on file Sexual Orientation Not on file Occupation Industry Job Start Date Job End Date retire Not on file Not on file Not on file Obstetrics History Last Filed Vital Signs Vital Sign Reading Time Taken Comments Blood Pressure 128/80 08/05/2022 2:19 PM CUFF SETTER LOCKSTITCH Pulse 45 08/05/2022 2:19 PM CUFF SETTER LOCKSTITCH Temperature 37.4 C (99.3 F) 08/05/2022 2:19 PM CUFF SETTER LOCKSTITCH Respiratory Rate 16 08/05/2022 2:19 PM CUFF SETTER LOCKSTITCH Oxygen Saturation 96% 08/05/2022 2:19 PM CUFF SETTER LOCKSTITCH Inhaled Oxygen Concentration - - Weight 88.3 kg (194 lb 10.7 oz) 08/05/2022 2:19 PM CUFF SETTER LOCKSTITCH Height 182 cm (5' 11.65) 08/05/2022 2:19 PM CUFF SETTER LOCKSTITCH Body Mass Index 26.66 08/05/2022 2:19 PM CUFF SETTER LOCKSTITCH Plan of Treatment Health Maintenance Due Date [...] Advance Directives For more information, please contact: [phone] * Full Code (Latest Code Status on File) Date Activated Date Inactivated Comments 06/24/2022 9:03 AM 06/24/2022 3:47 PM Care Teams Substation Designer Relationship Specialty Start Date End Date Votel, Guillermo Israel MD [address] [place] [address] PCP - General Family Medicine 05/01/24
[2024-10-25 15:07] LABS: Albumin* 4.6 g/dL (3.3-5.0); Chloride* 106 mmol/L (96-114); Potassium* 4.4 mmol/L (3.6-5.1); Sodium* 139 mmol/L (135-149)
[2024-10-25 15:09] LABS: Blood Urea Nitrogen* 19 mg/dL (7-30); Creatinine* 1.3 mg/dL (0.5-1.5); Est. Creatinine Clearance* 50.57; Estimated Glomerular Filt Rate 56 ml/min; INR 1.73 (0.91-1.10); Prothrombin Time 21.3 Seconds
[2024-10-25 15:10] LABS: Alanine Aminotransferase* 14 U/L (4-50); Alkaline Phosphatase* 46 U/L (40-150); Anion Gap 7 mEq/L (7-15); Aspartate Amino Transferase* 26 U/L (12-35); Bilirubin Direct* 0.3 mg/dL (0.0-0.5); Bilirubin Total* 0.5 mg/dL (0.1-1.5); Calcium* 8.6 mg/dL (8.4-10.6); Carbon Dioxide* 26 mmol/L (20-32); Glucose* 93 mg/dL (60-115); Partial Thromboplastin Time* 37 Seconds (23-33); Total Protein* 7.1 g/dL (6.0-8.3)
[2024-10-25 15:13] LABS: C Reactive Protein* 0.8 mg/dL (0.5-1.0)
[2024-10-25 15:29] LABS: NT Pro B Type NatriureticPept* 940 pg/mL
== END 2024-10-25 15:29 | disposition home or self-care (01) ==
PROVIDERS: Emergency Provider Family Medicine
DX: I48.92 Unspecified atrial flutter (principal)
CPT/HCPCS: 92960; 36415; 80048; 80076; 83880; 84484; 85025; 85610; 85730; 86140; 93005; 94761; 99285; 99291; J2704; J7030

== ENCOUNTER 2025-01-04 17:56 | Emergency (ER) | payer MEDICARE, SELFPAY ==
[2025-01-04] VITALS (19 sets, daily range): BP systolic 105–142; BP diastolic 75–107; PULSE 66–102; RESP 12–32; TEMP 36.8; O2SAT 88–100; BMI 29.1
--- OUTSIDE RECORDS SUMMARY | 2025-01-04 17:58 | XMS_ITS | Clinical Summary ---
Author Organization [facility] Address [address] [place] [id number] Care Team Providers Care Canceling And Cutting Control Clerk Name Role Phone Votel, Guillermo Pacheco MD Primary Care Provider + Allergies Active Allergy Reactions Criticality Noted Date Comments Levofloxacin Hives High 09/15/2022 Unlisted Allergen (Include Detail In Comments) Headache Medium 09/21/2019 Beer. Caused severe headache, nausea, Beer. Caused severe headache, nausea, Medications MULTIVITAMIN ORAL Take 1 Tablet by mouth once daily with evening meal. Active SAW PALMETTO ORAL Take 1 Capsule by mouth once daily with evening meal. 0 023 Active furosemide (LASIX) 20 mg tabletIndications :Typical atrial flutter (HC),History of cardiac radiofrequency ablation Take 1 Tablet (20 mg) by mouth once daily if needed (Goal weight 195. Take for weight increase by 3lbs in one day or 5 lbs in one week). 90 Tablet 1 023 Active Terazosin HCl 10 mg capsuleIndication s:HTN (hypertension) Take 1 Capsule (10 mg) by mouth at bedtime. 90 Capsule 3 024 Active dilTIAZem (CARDIZEM) 30 mg tabletIndications :PAF (paroxysmal atrial fibrillation) (HC) Take 1 tablet as needed for atrial fibrillation Can repeat hour later in needed. 15 Tablet 1 025 Active CPAPIndications:O SA (obstructive sleep apnea) RESMED CPAP (E0601) machine for home use at pressure: 5cmw, Choice of mask (A7030 or A7034) w/full face cushion (A7031) x1/mo, nasal cushion (A7032) x2/mo, or nasal pillows (A7033) x 2/mo; Length of Need: 99 months; Frequency of use: Daily 1 Each Active dilTIAZem CD 120 mg extended release 24 hr capsuleIndication s:Atrial fibrillation, unspecified type (HC) Take 1 Capsule (120 mg) by mouth once daily. 30 Capsule Active fenofibrate 54 mg tabletIndications :Hyperlipidemia, unspecified hyperlipidemia type Take 1 Tablet (54 mg) by mouth once daily with a meal. 90 Tablet Active Additional Information Patient taking differently:54 mg OralDAILY WITH EVENING MEAL, Informant: Patient's Recall, Reported on 12/08/2024 rivaroxaban 20 mg tabletIndications :PAF (paroxysmal atrial fibrillation) (HC) Take 1 Tablet (20 mg) by mouth once daily with evening meal. 90 Tablet Active sotaloL 80 mg tabletIndications :Paroxysmal atrial flutter (HC),Paroxysmal atrial fibrillation (HC) Take 1 Tablet (80 mg) by mouth every 12 hours. for 1 month post-ablation (through 01/08/2025) then ok to stop if you are not having recurrent atrial arrhythmias. Active sotaloL 80 mg tabletIndications :Paroxysmal atrial flutter (HC),Paroxysmal atrial fibrillation (HC) Take 1 Tablet (80 mg) by mouth every 12 hours. 180 Tablet 2024 Discontinued sotaloL 80 mg tabletIndications :Paroxysmal atrial flutter (HC),Paroxysmal atrial fibrillation (HC) Take 0.5 Tablets (40 mg) by mouth every 12 hours. for 1 month post-ablation (through 01/08/2025) then ok to stop if you are not having recurrent atrial arrhythmias. 2024 Discontinued(R eorder (E-cancel not sent)) Active Problems Problem Noted Date Diagnosed Date Acute on chronic diastolic (congestive) heart fa ilure 07/11/2024 Chronic diastolic (congestive) heart failure 10/2023 Infrarenal abdominal aortic aneurysm (AAA) witho ut rupture 10/27/2023 Assessment & Plan (07/11/2024 1:25 PM INTERFACE DEVELOPER): Repeat abdomen ultrasound October 2026 A-fib 07/20/2023 High cholesterol 07/20/2023 HTN (hypertension) 07/20/2023 BPH (benign prostatic hyperplasia) 07/20/2023 Encounters Date Type Department Care Team Description 01/04/2025 10:30 AM CDT Nurse/Clinic Staff Only [facility] [address] [place] [address] Cardiovascular Diagnostic Testing (EKG PER DR. DAWSON ) 01/04/2025 Orders Only [facility] [address] [place] [address] Cass Dawson MD 1 scan: (1-Ord) NFLD-EKG-01/04/25 01/04/2025 Travel 01/02/2025 Telephone [facility] [address] [place] [address] Ellen Esquivel MD Concerns 12/12/2024 Telephone [facility] [address] [facility] [address] [place] [address] Guillermo Doss MD Post Procedure 12/08/2024 1:34 PM CDT Anesthesia Event [facility] [address] [place] [address] Marty Nash CRNA 12/08/2024 10:48 AM CDT - 12/09/2024 10:52 AM CDT Hospital Encounter [facility] [address] [place] [address] Cass Dawson MD Katsiyiannis, William Thomas, MD Taylor, Amado Eldridge MD Atypical atrial flutter (HC) (Primary Dx); Paroxysmal atrial flutter (HC); Paroxysmal atrial fibrillation (HC) Discharge Disposition: Home Self Care 12/08/2024 Travel 12/06/2024 1:00 PM CDT Orders Only [facility] [address] [place] [address] Lab 12/06/2024 1:00 PM CDT Ancillary Procedure [facility] [address] [place] [address] 12/06/2024 Travel 11/21/2024 Refill [facility] [address] [place] [address] Ellen Esquivel MD Refill Request 11/16/2024 8:30 AM CDT Office Visit [facility] [address] [place] [address] Ellen Esquivel MD Follow Up (Pt. Had EKG this AM) 11/16/2024 Telephone [facility] [address] [place] [address] Abby Tobar, RN EP Procedure 11/07/2024 Telephone [facility] [address] [place] [address] Ellen Esquivel MD Atrial Fibrillation 10/26/2024 Telephone [facility] [address] [place] [address] Ellen Esquivel MD Procedure (cardioversion) 10/25/2024 9:50 AM CDT Nurse/Clinic Staff Only [facility] [address] [place] [address] Cardiovascular Diagnostic Testing (12 lead done for MHI) 10/25/2024 Orders Only [facility] [address] [place] [address] Ellen Esquivel MD 1 scan: (1-Ord) NFLD-EKG-10/25/24 10/25/2024 Travel 10/24/2024 Telephone [facility] [address] [place] [address] Ellen Esquivel MD Error-please disregard 10/24/2024 Telephone [facility] [address] [place] [address] Ellen Esquivel MD Atrial Fibrillation from Last 3 Months Immunizations Immunization Administration Dates Next Due COVID-19 vaccine (Moderna 100mcg/0.5mL) MD ANTWANV 10/01/2020,09/03/2020 Pneumococcal Poly,23-Valent (Pneumovax) 08/30/19 14 Pneumococcal [...] is your housing situation today? 1 07/11/2024 Interpersonal Safety Answer Date Record ed Are you being hit, kicked, p ushed or yelled at (see row info)? No 12/08/2024 Interpersonal Safety Abuse 12 - 18 Not on file 12/08/2024 Interpersonal Safety Ambulatory Vulnerability No t on file 12/08/2024 Utilities Answer Date Recorded Do you have trouble paying f or utilities (for example, heat, electricity, water, phone)? 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 Not on file Not on file Not on file Obstetrics History Last Filed Vital Signs Vital Sign Reading Time Taken Comments Blood Pressure 125/70 12/09/2024 7:52 AM CDT Pulse 74 12/09/2024 8:10 AM CDT Temperature 36.7 C (98.1 F) 12/09/2024 7:52 AM CDT Respiratory Rate 20 12/09/2024 7:52 AM CDT Oxygen Saturation 95% 12/09/2024 7:52 AM CDT Inhaled Oxygen Concentration - - Weight 99.1 kg (218 lb 6.4 oz) 11/16/2024 8:21 A M CDT Height 182.5 cm (5' 11.85) 10/03/2024 3:49 PM INTERFACE DEVELOPER Body Mass Index 29.74 10/03/2024 3:49 PM INTERFACE DEVELOPER Plan of Treatment Upcoming Encounters Date Type Department Care Team (Late st Contact Info) Description 01/10/2025 10:30 AM CDT Nurse/Clinic Staff Only [facility] [address] [place] [address] Health Maintenance Due Date Last Done Comments Hepatitis C screening for age 18-79 1963 Zoster (shingles) series for age 50+ (1 of 2) 1995 RSV vaccine for adults or (1 - 1-dose 75+ series) 2020 COVID-19 vaccine series ( - season) 2024 10/01/2020, 09/03/2020 Influenza Vaccine (Season Ended) 2025 Depression screening for age 12+ 07/11/2025 07/11/2024, 10/12/2023 Medicare Wellness for age 65+ 07/12/2025 07/11/2024, 07/20/2023 BMI (ht and wt on same day) for age 18+ 10/03/2025 10/03/2024, 07/11/2024, 10/12/2023, Additional history exists Tetanus booster 06/16/2031 06/16/2021, 04/10, 11/27/1996, Additional history exists Pneumococcal series for age 50+ Completed 03/23/2018, 08/30/2013 Tdap Completed 06/16/2021, 05/07/2010 Hepatitis B series for 19+ Aged Out N o longer eligible based on patient's age to complete this topic Procedures Procedure Name Priority Date/Time Associated Diagnosis Comments EKG 12 LEAD Routine 01/04/2025 2:32 PM CDT Persistent atrial fibrillation (HC) SCAN-CARDIAC STRIP 12/09/2024 8: 10 AM CDT EKG 12 LEAD Early AM 12/09/2024 6:08 AM CDT SCAN-CARDIAC STRIP 12/08/2024 8: 51 PM CDT HCH[facility] ACTIVATED CLOTTING TM CV Timed 12/08/2024 5:48 PM CDT HCHG ACTIVATED CLOTTING TM CV Timed 12/08/2024 5:25 PM CDT HCHG ACTIVATED CLOTTING TM CV Timed 12/08/2024 4:31 PM CDT HCHG ACTIVATED CLOTTING TM CV Timed 12/08/2024 3:52 PM CDT HCHG ACTIVATED CLOTTING TM CV Timed 12/08/2024 3:12 PM CDT HCHG ACTIVATED CLOTTING TM CV Timed 12/08/2024 2:28 PM CDT EP STUDY /ABLATION Routine 12/08/2024 2: 07 PM CDT ENDOTRACHEAL TUBE Routine 12/08/2024 1:4 9 PM CDT ENDOTRACHEAL TUBE Routine 12/08/2024 1:4 9 PM CDT ENDOTRACHEAL TUBE Routine 12/08/2024 1:4 9 PM CDT EKG 12 LEAD Preop 12/08/2024 1:03 PM CDT CBC W PLT NO DIFF Preop 12/08/2024 11: 46 AM CDT BASIC METABOLIC PANEL Preop 12/08/2024 11:46 AM CDT SCAN-CARDIAC STRIP 12/08/2024 12 :[address] CARDIAC MORPHOLOGY W CV DUAL READ Routine 12/06/2024 1:05 PM CDT PAF (paroxysmal atrial fibrillation) (HC) CT CARDIAC MORPHOLOGY W RAD DUAL READ Routine 12/06/2024 1:05 PM CDT PAF (paroxysmal atrial fibrillation) (HC) CREATININE,ISTAT Routine 12/06/2024 12:1 8 PM CDT Preprocedural cardiovascular examination EKG 12 LEAD Routine 10/25/2024 11:55 AM CDT Chronic atrial fibrillation (HC) from Last 3 Months Results * EKG 12 LEAD (01/04/2025 2:32 PM CDT) Only the most recent of4 resultswithin the time period is included. us Cass Dawson MD EKG ORD Fin al Result * SCAN-CARDIAC STRIP (12/09/2024 8:10 AM CDT) us Scanner OTHER Final Result * SCAN-CARDIAC STRIP (12/08/2024 8:51 PM CDT) us Scanner OTHER Final Result * (ABNORMAL) ACTIVATED CLOTTING TIME [id number] ACT (12/08/2024 5:48 PM CDT) Only the most recent of6 resultswithin the time period is included. [facility] ACTIVATED CLOTTING TIME, POCT 178(H) 74 - 125 sec 12/08/2024 5:53 PM CDT [facility] Blood BLOOD SPECIMEN / Unknown 12/08/2024 5:48 PM CDT 12/08/2024 5:53 PM CDT Cass Dawson MD HEMATOLOGY Fin al Result [facility] [address] [place] [address], [place] * EP STUDY /ABLATION (12/08/2024 2:07 PM CDT) Anatomical Region Laterality Modality X-Ray Angiograph y, X-Ray Angiography 12/08/2024 2:07 PM CDT Narrative Procedure Note Cass Dawson MD - 12/08/2024 5:06 PM CDT [facility] Electrophysiology Procedure/Implant Report Name: JUANJO TERRAZAS Event Date: 12/08/2024 [facility] ID #: [id number] Date: 1945 Gender: Male Age: 79 JOVANY #: [id number] Procedure Performed By: CASS DAWSON [facility] Referring Physician: Dr. Ellen Esquivel Primary Care Physician: Dr. Guillermo Lomeli Summary / Conclusions Juanjo Terrazas presented to the EP lab where he had EP study andAffera pulsed field ablation to achieve isolation of the pulmonary veinsfor atrial fibrillation. He presented to the laboratory in an atypicalleft atrial septal flutter. There was extensive septal scarring in theseptum was ablated and we connected the ablation lesions to the septalaspect of the right pulmonary vein ablation lesions before the atrialflutter terminated. We also performed an anterior mitral line which weconnected to the anterior roof line. Entrance and exit block wasdemonstrated in all four pulmonary veins after ablation. His previousright atrial flutter line was fortified and subsequent differential pacingwas consistent with bidirectional block with a transisthmus conductiontime of 240 ms in both directions.No arrhythmias could be induced afterablation for atrial fibrillation at EP study. The patient tolerated theprocedures well. Recommendations / Plan 1. The patient will be admitted for observation and then discharged hometomorrow if there are no complications. 2. He should continue anticoagulation with Rivaroxaban (or alternativeagent) indefinitely given [id number] risk score of 4 and HASBLED score of1. 3. The patient should follow up with me in the office in 6 months. 4. Reduce sotalol to 40 mg twice daily and if he continues to do well wecan discontinue the sotalol in 1 month. Continue diltiazem. 5. No need for proton pump inhibitor since he had pulse field ablation inthe left atrium. Pre-Operative Diagnosis Atrial Flutter Persistent atrial fibrillation Indications Same as Pre-operative diagnosis Brief Patient History Juanjo Terrazas is a 79-year-old man with hypertension, hyperlipidemia,small infrarenal abdominal aortic aneurysm, recurrent symptomaticpersistent atrial flutter for which he had previously had cardioversionsand I performed a catheter ablation procedure for caval tricuspid isthmusdependent right atrial on September 16, 2022 and he had subsequently beennoted to have paroxysms of atrial fibrillation for which sotalol wasinitiated and he continues to have atrial fibrillation as well as atypicalappearing atrial flutter which has required cardioversions who presentsfor an ablation procedure for both atrial fibrillation and atrial flutter.When in atrial flutter and atrial fibrillation he complains of fatigue,dyspnea with exertion and significant lower extremity edema. He has beentaking all his medications as prescribed. Juanjo Terrazas had anopportunity to ask questions and all his questions were answered to hissatisfaction and he decided to proceed with the procedure. A CTA performedon December 07, 2023 demonstrated no left atrial thrombus. Procedure Description After informed consent was reaffirmed, the patient was brought to the EPlab in the fasted state in atrial flutter. After general anesthesia wasinduced and the patient was intubated, he was prepped and draped in theusual sterile fashion. The right groin was infiltrated with lidocaine forlocal anesthesia and then sheaths were placed into the right femoral veinusing ultrasound guidance and the modified Seldinger technique. Throughthese sheaths, a 10 pole deflectable diagnostic catheter was inserted intothe coronary sinus and then the 8Fr intracardiac echo (ICE) was placed viathe left femoral vein for assistance with the trans-septal punctures,monitoring of the catheter tissue interface during ablation, confirmationof catheter positions at the pulmonary vein antra and monitoring forpericardial effusion. The atrial flutter had a cycle length of 205 mswith proximal to distal activation in the coronary sinus. First we mappedthe atrial flutter in the right atrium and the atrial flutter lineappeared blocked with there was some fractionated electrograms on theventricular edge. I decided to first fortify the atrial flutter line toabsolutely ensure that this was blocked before we moved to the leftatrium. Radiofrequency ablation lesions were delivered with the sphere 9catheter to connect the tricuspid annulus to the inferior vena cava acrossthe subcu station isthmus. Despite these ablation lesions, the atrialflutter persisted. We then moved to mapping in the left atrium. Intracardiac echo showed a common ostium for the left pulmonary veins andtwo right veins with separate ostia. Via the right femoral vein, leftatrial instrumentation was performed with single trans-septal punctureusing ICE and the MLO Sheath and a 71 cm Heartspan needle. The leftatrial pressure was 14 mm Hg. Systemic anticoagulation with intravenousheparin was initiated just prior to the first trans-septal puncture with atarget ACT of 350- 400 sec. After extensive and meticulous flushing toensure that there were no air bubbles in the system, the Sphere 9 mappingand ablation catheter was advanced into the left atrium.The Sphere 9multielectrode mapping catheter was used for mapping the pulmonaryveins.There were large amplitude pulmonary vein potentials at the antra ofeach of the pulmonary veins. There was also an extensive amount of septalscarring. The atrial flutter appeared to be micro reentrant in the septalaspect of the mitral annulus low and anteriorly close to and adjacent tothe His bundle recording on the right side. We then first decided toproceed with pulmonary vein isolation. Pulsed field ablations weredelivered to achieve circumferential ablation around the pulmonary veinswith addition lesions given to cover areas of gap using the Affera mappingsystem and intracardiac echocardiography for additional guidance. Afterthe pulmonary vein isolation, the atrial flutter persisted. We thenturned our attention to the septal scarring. Ablation lesions weredelivered to create a line of block across the high septum all the way tothe right pulmonary veins. The atrial flutter cycle length prolonged to280 ms. We then ablated lower on the septum where there were regions offractionated electrograms and then the atrial flutter cycle lengthprolonged further to 350 ms before termination. We avoided the early areaadjacent to the His bundle electrogram on the left-sided septum however wewere able to create lines of block around this area. We extended theseptal ablations to the anterior roof and connected this to the anteriormitral isthmus. After isolation of the pulmonary veins there was clearentrance block into each of the pulmonary veins and exit block wasconfirmed by pacing around the ablation and Sphere 9 catheter in eachvein at an output of 10mA with 1 ms pulse width. The atrial flutter linewas explored and differential pacing was consistent with bidirectionaltract isthmus conduction block with a transisthmus conduction time of 240ms both directions. Using the decapolar catheter and the Sphere 9 we were able to do an EPstudy. Post ablation conduction intervals were normal. Pacing from thecoronary sinus demonstrated normal AV sunita function. Pacing from theproximal coronary sinus with single extrastimuli demonstrated no evidenceof dual antegrade AV sunita pathways. The Sphere 9 catheter was advanced tothe right ventricle were pacing showed no VA conduction with concentricatrial activation in the coronary sinus consistent with retrogradeconduction up the AV node at baseline. We placed the patient onisoproterenol 10 mcg/ minute and performed pacing from the coronary sinuswith single extrastimuli decremented down to the atrial effectiverefractory period was performed without induction of arrhythmias.. We alsoperformed atrial pacing with triple extra stimuli simultaneouslydecremented down to [address] cycle length of 400 ms while onisoproterenol without induction of any arrhythmias. See EP study sectionof report. The heparin was then partially reversed with protamine.Intracardiac echocardiography showed no evidence of a pericardialeffusion. Catheters and sheaths were withdrawn the venous sheaths wereleft in place to be removed later after the ACT is less than 200. Thepatient was extubated in the EP lab and taken [facility] the [facility] in [facility] condition. The procedure was tolerated well and there wereno immediate complications noted. Electrophysiology Study Data Basic Intervals Study State Underlying Rhythm Cycle Length ME PA AH HV QRS [place] QRSMorphology Baseline Atrial Flutter [phone] Post Ablation NSR 847 268 Antegrade 1:1 AV Node Function Study State Pacing Site AV Node SCL 1:1 AH HV Dual AVN Physiology? AVNFast 1:1 AVN Slow 1:1 [place] Cycle Length Post Ablation 380 360 Refractory Periods Study State Pacing Site Paced Cycle Length Paced Cycle ERP AVN ERP DualNode Physiology? AVN ERP (fast) AVN ERP (slow) Post Ablation CS 600 310 Post Ablation CS 600 240 Post Ablation CS 400 200 Study Events Atrial 600 240 Study Events Atrial 400 200 Retrograde 1:1 AV Node Function Study State Pacing Site AV Node SCL 1:1 Dual AVN Physiology? AVN Fast 1:1 AVN Slow 1:1 Wenkebach Cycle Length No VA Conduction? Midline Activation? Post Ablation Yes Ablation Data Atrial Fibrillation Energy Source Ablation Catheter Used Rhythm During Ablation # of AttemptsMax Hutchins Max Temp. Result Other Sphere-9 NSR 137 Success Left atrial lesion sets were placed. The left inferior pulmonary vein was isolated. The left superior pulmonary vein was isolated. The right inferior pulmonary vein was isolated. The right superior pulmonary vein was isolated. A circumferential lesion set was placed around the right pulmonaryveins. A circumferential lesion set was placed around the left pulmonary veins. An ablation line was placed between the mitral valve isthmus and the leftinferior pulmonary vein. An ablation line was placed between the coronary sinus and the rightpulmonary veins. Comments: Total Ablation Time: 10m 14s Atrial Flutter Energy Source Ablation Catheter Used Rhythm During Ablation # of AttemptsMax Hutchins Max Temp. Result RF Sphere-9 NSR 17 Success Cavotricuspid isthmus ablation was performed. Catheter Use Catheter Type Catheter Description Insertion Site Intracardiac Site SheathSize Sheath Type Sheath Description Diagnostic [place] AcuNav Diagnostic Ultrasound Catheter Right Femoral VeinRA 8 Fr Standard Sidearm Diagnostic Cruz CS Catheter, D-F curve, 2mm tip dome, 2-8-2 spacingw/E-Z Steer Right Femoral Vein CS 8 Fr Standard Sidearm Ablation Sphere-9 Mapping and Ablation Catheter Right Femoral Vein Map/Abl8.5 Fr Guide MLO Procedure(s) Performed A Fib/PV Isolation Ablation Programmed stimulation after drug Infusion (e.g.,Isoproteronol) Intracardiac Echocardiography Site-Rite Ultrasound used for vascular access 3D Mapping Ablation of Separate Mechanism of Tachychardia A Fib Additional linear/focal ablation RA/LA Ablation of Separate Mechanism of Tachychardia Auxiliary Device Intracardiac Echo Used: Yes Procedure Detail Estimated Blood Loss: < 50 ml Specimen Collected: None Level of Sedation Achieved: See Anesthesia Note Total Flouro Time: 0 OPTICAL EFFECTS LAYOUT PERSON Total Flouro Dose: 0 mGy Transseptal Mean LA Pressure: 14 mmHg Staff Name Role Cass Dawson Executive Producer [employer] Maria Guadalupe Patricia RN Nurse Cintia Serrano Monitor Darci Trevizo Scrub Azra Hackett NP Auto Mechanics Instructor Medications Ordered and Administered Start Time Stop Time Medication Dose Units Route Ordered By Given By 14:09 0.25% Bupivicaine 10 mL Subcut MD Cass Duarte MD 14:09 1% Lidocaine Hydrochloride 10 mL Subcut MD Cass Duarte MD 14:13 Heparin 07278 Units IV MD Maria Guadalupe Duarte RN 14:58 Atropine Sulfate 0.4 Mg IV MD Maria Guadalupe Duarte RN 15:55 Isoproterenol (Isuprel) 10 mcg per min IV Sukhi Duarte RN 15:58 Heparin 5000 Units IV MD Cass Duarte MD 16:30 Protamine 50 Mg IV MD Maria Guadalupe Duarte RN The anesthesia service monitored the patient s conscious sedation duringthe procedure. The medications listed above were verbally ordered by me and read back tome as documented above. Refer to the hemodynamic procedure log report for additional casedetails. electronically signed on 12/08/2024 5:06:44 PM with status of Final Cass Dawson MD Executive Producer [employer] [facility] [address] [place] [address] (p) [phone]) Cass Dawson MD CV IMAGING Ottoniel jaime Result - Final * H[facility]G TUBE PR1, H[facility] INSTRUMENT DISP PR10, HCHG STYLET PR1 (12/08/2024 1:49 PM CDT) Narrative Marty Nash, [employer] - 12/08/2024 1:49 PM CDT Marty Nash, LIFE TE[employer] 12/08/2024 1:49 PM Procedure: ETT Patient location during procedure: OR ETT Properties Mask Ventilation: oral airway and easy Final Technique: video laryngoscopy Type: straight Location: oral Cuffed: yes Tube Size: 7.5 mm Stylet: yes Laryngoscope Blade: Glidescope Blade Size: 3 Cormack-Lehane Grade View: 1 Insertion Attempts: 1 Placement Verification: auscultation, end tidal CO2 and symmetrical chest wall movement Assessment: pharynx clear, atraumatic and dentition unchanged Secured at: 23 Measured From: lips Difficulty: 0 (not difficult) John Espinal DO ANESTHESIA PX NOTE ORDER RENEE Final Result * (ABNORMAL) CBC with Platelet no Diff (12/08/2024 11:46 AM CDT) WHITE BLOOD COUNT 6.2 4.5 - 11.0 thou/cu mm 12/08/2024 12:16 PM CDT [facility] RED BLOOD COUNT 4.06(L) 4.30 - 5.90 mil/cu mm 12/08/2024 12:16 PM CDT [facility] HEMOGLOBIN 13.3(L) 13.5 - 17.5 g/dL 12/08/2024 12:16 PM CDT [facility] HEMATOCRIT 39.1 37.0 - 53.0 % 12/08/2024 12:16 PM CDT [facility] MCV 96 80 - 100 fL 12/08/2024 12:16 PM CDT [facility] MCH 32.8 26.0 - 34.0 pg 12/08/2024 12:16 PM CDT [facility] MCHC 34.0 32.0 - 36.0 g/dL 12/08/2024 12:16 PM CDT [facility] RDW 12.1 11.5 - 15.5 % 12/08/2024 12:16 PM CDT [facility] PLATELET COUNT 252 140 - 440 thou/cu mm 12/08/2024 12:16 PM CDT [facility] MPV 9.8 6.5 - 11.0 fL 12/08/2024 12:16 PM CDT [facility] NRBC 0.0 % 12/08/2024 12:16 PM CDT [facility] ABS NRBC 0.0 thou /cu mm 12/08/2024 12:16 PM CDT [facility] Blood BLOOD SPECIMEN / Unknown Butterfly / Unknown 12/08/2024 11:46 AM CDT 12/08/2024 12:06 PM CDT Cass Dawson MD HEMATOLOGY Fin al Result [facility] [address] [place] [address], * (ABNORMAL) Basic Metabolic Panel (12/08/2024 11:46 AM CDT) SODIUM 139 136 - 145 mmol/L 12/08/2024 12:37 PM CDT [facility] POTASSIUM 4.5 3.5 - 5.1 mmol/L 12/08/2024 12:37 PM CDT [facility] CHLORIDE 106 98 - 107 mmol/L 12/08/2024 12:37 PM CDT [facility] CO2,TOTAL 21(L) 22 - 29 mmol/L 12/08/2024 12:37 PM T [facility] ANION GAP 12 5 - 18 12/08/2024 12:37 PM T [facility] GLUCOSE 105(H) 70 - 99 mg/dL 12/08/2024 12:37 PM T [facility] CALCIUM 9.0 8.8 - 10.4 mg/dL 12/08/2024 12:37 PM CDT [facility] Comment: Reference ranges for this test were updated on 06/13/2024 to reflect our healthy population more accurately. Reference range changes are not retroactively applied to results, but previous results using the same methodology can be interpreted in the context of the new reference range. BUN 22 8 - 23 mg/dL 12/08/2024 12:37 PM CDT [facility] CREATININE 1.17 0.70 - 1.20 mg/dL 12/08/2024 12:37 PM CDT [facility] BUN/CREAT RATIO 19 10 - 20 12:37 PM CDT [facility] eGFR 63(L) >90 mL/min/1. 73m2 12/08/2024 12:37 PM CDT [facility] Comment:As of 2021, eG FR is calculated by the CKD-EPI creatinine equation without race adjustment. eGFR can be influenced by muscle mass, exercise, and diet. The reported eGFR is an estimation only and is only applicable if the renal function is stable. Blood BLOOD SPECIMEN / Unknown Butterfly / Unknown 12/08/2024 11:46 AM CDT 12/08/2024 12:06 PM CDT Cass Dawson MD CHEMISTRY Fin al Result [facility] [address] [place] [id number], [place] * SCAN-CARDIAC STRIP (12/08/2024 12:00 AM CDT) Narrative 12/08/2024 12:00 AM CDT Ordered by an unspecified provider. us Other Clinical Staff OTHER Final Resul t * CT CARDIAC MORPHOLOGY W CV DUAL READ (12/06/2024 1:05 PM CDT) Anatomical Region Laterality Modality HEART Computed Tomogra phy Narrative 12/06/2024 4:30 PM CDT STUDY: CT CARDIAC MORPHOLOGY Study date: 12/06/2024 Indication: 79 year-old male with AF has been referred for evaluation of left atrial and pulmonary vein anatomy. STUDY PARAMETERS: Scanner: Siemens Definition Force Contrast: 75 ml of Omnipaque 350 Scan protocol: Gated high-pitch for first-pass arterial-phase and Gated high-pitch for delayed phase Radiation dose length product: 154 Image quality: Excellent FINDINGS: Left atrium: No MILLY thrombus Pulmonary veins: Two right-sided and common left-sided veins. Pericardium: Normal Esophagus: Positioned directly posterior to the insertion sites of the left-sided pulmonary veins. Thoracic aorta: No acute pathology Coronary arteries: Incidentally noted (study not designed for complete coronary evaluation) - prominent coronary calcification Noncardiac findings: Please see separate radiology report. FINAL IMPRESSIONS: No MILLY thrombus. Two right-sided and common left-sided pulmonary veins (see above). Normal pericardium. Prominent coronary calcification incidentally noted. Donnie Granger MD [facility] FOR PATIENT: Results are automatically released to your [employer]) account once available, in compliance with federal regulations. This means that you may see your results before your provider has had a chance to review them. Please allow 2-3 business days for your provider to comment on the results. us Cass Dawson MD CT Fin al Result * CT CARDIAC MORPHOLOGY W RAD DUAL READ (12/06/2024 1:05 PM CDT) Anatomical Region Laterality Modality HEART Computed Tomogra phy 12/06/2024 9:26 PM CDT Narrative 12/06/2024 9:26 PM CDT For Patients: As a result of the Century Cures Act, medical imaging exams and procedure reports are released immediately into your electronic medical record. You may view this report before your referring provider. If you have questions, please contact your health care provider. THIS IS THE RADIOLOGY OVER READ REPORT OF A DUAL READ STUDY. READ THE SEPARATE CARDIOLOGY REPORT FOR CARDIOVASCULAR FINDINGS. REPORTS MAY BE FINALIZED AT DIFFERENT TIMES. COMPARISON : No comparison. TECHNIQUE : Please see cardiology report for technical information. This exam is being performed in conjunction with the services provided by the [facility] ([facility]). INDICATION: Cardiac over-read. FINDINGS: Aorta: This is reported by cardiology. Mediastinum: No adenopathy. Pulmonary arteries: Bolus timing may limit evaluation. Visualized/opacified pulmonary arteries demonstrate no filling defects. Lungs and pleural structures: Clear with no pleural effusions or suspicious nodules. Miscellaneous: Fatty infiltration of the liver. Decreased attenuation with no mass lesion. IMPRESSION : 1. See separate cardiology report for cardiac findings. 2. Decreased attenuation fatty infiltration liver is present. 3. No additional significant extra cardiac imaging abnormality. Please note that all CT scans at this facility use dose modulation, iterative reconstruction, and/or weight-based dosing when appropriate to reduce radiation dose to as low as reasonably achievable. Dictated by Deo Morgan MD @ 12/06/2024 9:26:37 PM (Electronically Signed) Procedure Note Deo Morgan MD - 12/06/2024 For Patients: As a result of the Cures Act, medical imagingexams and procedure reports are released immediately into your electronicmedical record. You may view this report before your referring provider.If you have questions, please contact your health care provider. THIS IS THE RADIOLOGY OVER READ REPORT OF A DUAL READ STUDY. READ THESEPARATE CARDIOLOGY REPORT FOR CARDIOVASCULAR FINDINGS. REPORTS MAY BEFINALIZED AT DIFFERENT TIMES. COMPARISON : No comparison. TECHNIQUE : Please see cardiology report for technical information. This exam is being performed in conjunction with the services provided bythe [facility] ([facility]). INDICATION: Cardiac over-read. FINDINGS: Aorta: This is reported by cardiology. Mediastinum: No adenopathy. Pulmonary arteries: Bolus timing may limit evaluation. Visualized/opacified pulmonary arteriesdemonstrate no filling defects. Lungs and pleural structures: Clear with no pleural effusions orsuspicious nodules. Miscellaneous: Fatty infiltration of the liver. Decreased attenuation withno mass lesion. IMPRESSION : 1. See separate cardiology report for cardiac findings. 2. Decreased attenuation fatty infiltration liver is present. 3. No additional significant extra cardiac imaging abnormality. Please note that all CT scans at this facility use dose modulation,iterative reconstruction, and/or weight-based dosing when appropriate toreduce radiation dose to as low as reasonably achievable. Dictated by Deo Morgan MD @ 12/06/2024 9:26:37 PM (Electronically Signed) Cass Dawson MD CT Fin al Result * (ABNORMAL) CREATININE,ISTAT (12/06/2024 12:18 PM CDT) POCT,CREATININ E, ISTAT 1.4(H) 0.6 - 1.3 mg/dL [facility] ( Blood BLOOD SPECIMEN / Unknown 12/06/2024 12:18 PM CDT 12/06/2024 12:19 PM CDT Cass Dawson MD CHEMISTRY Fin al Result [facility] [address] [place] [address], [facility] ( [address] [place] [address] from Last 3 Months Insurance BLUE CROSS MEDICARE ADVANTAGE MEDICARE PART A HB ONLY Advance Directives * Full Code (Latest Code Status on File) Date Activated Date Inactivated Comments 12/08/2024 4:38 PM 12/09/2024 1:09 PM Question Answer Comments Code Status Discussion: Other * Full Code Date Activated Date Inactivated [...] Comments Code Status Discussion: Other Care Teams Canceling And Cutting Control Clerk Relationship Specialty Start Date End Date Votel, Guillermo Pacheco MD [address] [place] [address] PCP - General Family Practice 01/18/24
--- OUTSIDE RECORDS SUMMARY | 2025-01-04 17:58 | XMS_ITS | Clinical Summary ---
Author Organization [facility] Address [address] [place] [address] Care Team Providers Care Stove Cleaner Name Role Phone Unavailable Primary Care Provider Unavailabl e Source Comments Patient records contain information from all sites at [facility]. For routine questions regarding patient records, call [phone] during business hours, M-F 8:00 AM - 5:00 PM Central Time. Record requests for emergency care only can be directed to [phone] at any time.[facility] Allergies No known active allergies Encounters Date Type Department Care Team Description 11/16/2024 7:37 AM CDT - 11/16/2024 11:59 PM CDT Hospital Encounter Department of Laboratory Medicine in [place], [place] [address] [place] [address] Ellen Esquivel M.D. 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 Gender Identity Not on file Sexual Orientation Not on file Plan of Treatment Health Maintenance Due Date Last Done Comments Hepatitis C Screening 1945 Zoster Vaccines (1 of 2) 1995 RSV vaccine - (32-3 6 weeks) or 60+ years (1 - 1-dose 75+ series) 2020 COVID-19 Vaccine (2023-2 5 season) 2024 10/01/2020, 09/03/2020 Influenza Vaccine (#1) 2024 Depression Screening (Annual PHQ-2) 08/09/2024 Fall Risk Screen (Annual) 08/09/2024 DTaP,Tdap,and Td Vaccines (3 - Td or Tdap) 06/16/2031 06/16/2021, 05/07/2010, 02/27/1993 Pneumococcal vaccine (50+ years) Completed 03/23/2018, 08/30/2013 IPV Vaccines Aged Out No longer eligi ble based on patient's age to complete this topic Procedures Procedure Name Priority Date/Time Associated Diagnosis Comments ECG Routine 11/16/2024 7:47 AM CDT Atrial Fibrillation Other Persistent (HCC) from Last 3 Months Results * ECG 12 Lead (11/16/2024 7:47 AM CDT) Ventricular Rate ECG/Min 98 BPM MUSE QRSD Interval 84 ms MUSE QT Interval 354 ms MUSE QTC Interval 451 ms MUSE P [place] 92 degrees MUSE R [place] -9 degrees MUSE T Wave [place] -4 degrees MUSE 11/16/2024 7:47 AM CDT 11/16/2024 7:54 AM CDT Impressions MUSE - 11/16/2024 7:54 AM CDT Atrial flutter with variable A-V block Nonspecific ST and T wave abnormality When compared with ECG of 06-Dec-2023 13:37, Premature ventricular complexes are no longer present Reviewed by ELMER Danielson Narrative Procedure Note Robinson Medina M.D. - 11/16/2024 IMPRESSION: Atrial flutter with variable A-V block Nonspecific ST and T wave abnormality When compared with ECG of 06-Dec-2023 13:37, Premature ventricular complexes are no longer present Reviewed by ELMER Danielson us Ellen Esquivel M.D. ECG ORDERABLES Final Resu lt MUSE NA from Last 3 Months Insurance [facility]
--- OUTSIDE RECORDS SUMMARY | 2025-01-04 17:58 | XMS_ITS | Clinical Summary ---
Author Organization [facility] Address [address] [address] Phone Care Team Providers Care Community Youth Secretary Name Role Phone Guillermo Lomeli MD Primary Care Provider [phone] Allergies Active Allergy Reactions Criticality Noted Date Comments Food Headache Medium 09/21/2019 Beer. Caused severe headache, nausea, Medications Nutritional Supplements (GLUCOSAMINE COMPLEX) TABS Take 1 Tablet by mouth every evening. FlexaMin- Glucosamine with Chondrointin, Vit D 3 2000 IU + MSM 2 Active multiple vitamin with minerals (CENTRUM SILVER) tablet Take 1 Tablet by mouth every evening. 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 Never 07/31/2022 Do you belong to any clubs o r organizations such as gnosticist groups, unions, fraternal or athletic groups, or [...] Answer Date Recorded PHQ-2 Total 0 07/31/2022 [facility] - Occupational Stress [...] on file Legal Sex Male 2:55 PM CHILD SUPPORT SPECIALIST Gender Identity Not on file Sexual Orientation Not on file Occupation Industry Job Start Date Job End Date retire Not on file Not on file Not on file Obstetrics History Last Filed Vital Signs Vital Sign Reading Time Taken Comments Blood Pressure 128/80 08/05/2022 2:19 PM CHILD SUPPORT SPECIALIST Pulse 45 08/05/2022 2:19 PM CHILD SUPPORT SPECIALIST Temperature 37.4 C (99.3 F) 08/05/2022 2:19 PM CHILD SUPPORT SPECIALIST Respiratory Rate 16 08/05/2022 2:19 PM CHILD SUPPORT SPECIALIST Oxygen Saturation 96% 08/05/2022 2:19 PM CHILD SUPPORT SPECIALIST Inhaled Oxygen Concentration - - Weight 88.3 kg (194 lb 10.7 oz) 08/05/2022 2:19 PM CHILD SUPPORT SPECIALIST Height 182 cm (5' 11.65) 08/05/2022 2:19 PM CHILD SUPPORT SPECIALIST Body Mass Index 26.66 08/05/2022 2:19 PM CHILD SUPPORT SPECIALIST Plan of Treatment Health Maintenance Due Date Last Done Comments Shingrix (Zoster recombinant) vaccine (Standing Order) (1 of 2) 1995 RSV Vaccination (60+ yrs) (Abrysvo/Arexvy) (1 - 1-dose 75+ series) 2020 COLONOSCOPY Q 5 YRS 05/03/2023 05/03/2018, 2 MEDICARE AWV 07/31/2023 07/31/2022, 09/09, 09/21/2019, Additional history exists COVID-19 Vaccine ( season) 2024 06/20/2021, 10/01/2020, 09/03/2020 TETANUS (Standing Order) 06/16/2031 021, 05/07/2010, 05/07/2010, [...] Advance Directives For more information, please contact: [phone] * Full Code (Latest Code Status on File) Date Activated Date Inactivated Comments 06/24/2022 9:03 AM 06/24/2022 3:47 PM Care Teams Community Youth Secretary Relationship Specialty Start Date End Date Votel, Guillermo Israel MD [address] [place] [address] PCP - General Family Medicine 05/01/24
--- OUTSIDE RECORDS SUMMARY | 2025-01-04 17:58 | XMS_ITS | Encounter Summary ---
Author Organization [facility] Address [address] [address] Phone Care Team Providers Care Meat Apprentice Name Role Phone Juno Isaac MD Primary Care Provider [phone] Guillermo Lomeli MD Primary Care Provider [phone] Encounter Details Date Type Department Care Team (Late st Contact Info) Description 07/08/2022 Prep for Procedure [address] [place] [address] CLINIC ELECTROPHSIOLOGY [address] [place] [address] [id number] Brennen Reich PA-C [address] [place] [phone] Social History Tobacco Use Types Packs/Day Years [...] often do you attend chur ch or anabaptist services? 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 No / Unsure 07/06/2022 1:47 PM CYLINDER PRESS OPERATOR HELPER documented as of this encounter Plan of Treatment Not on file documented as of this encounter Visit Diagnoses Not on filedocumented in this encounter Additional Health Concerns Infection Onset Date Last Indicated Resolved Time R/O Respiratory Pathogens 07/13/2022 07/13/2022 2:39 PM CYLINDER PRESS OPERATOR HELPER R/O COVID-19 07/13/2022 07/13/2022 07/13/2022 2:39 PM CYLINDER PRESS OPERATOR HELPER COVID-19 Confirmed 07/13/2022 07/31/2022 3 11:06 PM CYLINDER PRESS OPERATOR HELPER documented as of this encounter Care Teams Meat Apprentice Relationship Specialty Start Date End Date Juno Isaac MD [address] [place] [id number] PCP - General Family Medicine 11/30/14 04/30/24 Guillermo Lomeli MD [address] [place] [address] PCP - General Family Medicine 05/01/24 documented as of this encounter
--- NOTE | 2025-01-04 18:27 | ED.ARRPALP ---
HPI - Arrhythmia/Palpitations General Time Seen by Provider: 18:27 <Lurdes Morris MD - Last Filed: 01/04/25 20:28> Date Seen: 01/04/25 <Lurdes Morris MD - Last Filed: 01/04/25 20:28> Chief Complaint: Arrhythmia/Palpitations <Lurdes Morris MD - Last Filed: 01/04/25 20:28> Stated Complaint: Cardioversion <Lurdes Morris MD - Last Filed: 01/04/25 20:28> Time Seen by Provider: 01/04/25 18:26 <Lurdes Morris MD - Last Filed: 01/04/25 20:28> Source: patient, RN notes reviewed and old records reviewed <Lurdes Morris MD - Last Filed: 01/04/25 20:28> Mode of arrival: ambulatory <Lurdes Morris MD - Last Filed: 01/04/25 20:28> Limitations: no limitations <Lurdes Morris MD - Last Filed: 01/04/25 20:28> History of Present Illness HPI narrative: This 79-year-old male is presenting to the ER stating he needs a cardioversion. He had a cardiac ablation at [facility] on December 08. He is on rivaroxaban and is due for his night dose, he has it with it and we will have him take it. He was concerned that he was still having elevated heart rate, talked to Dr. Esquivel on the , he had an updated EKG today. He was offered an appointment with her but he did declined that. He has seen Dr. Boyd in electrophysiology. He is status post atrial fibrillation/flutter ablation per a letter sent on December 12. His EKG today reportedly showed atrial fibrillation and he was advised to go up to [place] for cardioversion. He did not want to drive that far. He denies any chest pain. He is having some mild exertional shortness of breath, describes it as mild. <Lurdes Morris MD - Last Filed: 01/04/25 20:28> Related Data Home Medications: Home Medications ?Medication ?Instructions ?Recorded ?Confirmed fenofibrate 54 mg tablet 54 mg PO DAILY 09/25/23 01/04/25 rivaroxaban 20 mg tablet (Xarelto) 20 mg PO DAILY 09/25/23 01/04/25 sotalol 80 mg tablet 80 mg PO DAILY 09/25/23 01/04/25 terazosin 10 mg capsule 10 mg PO DAILY 09/25/23 01/04/25 diltiazem HCl 120 mg 120 mg PO DAILY 01/04/25 01/04/25 capsule,extended release 24 hr <Lurdes Morris MD - Last Filed: 01/04/25 20:28> Allergies/Adverse Reactions: Allergies Allergy/AdvReac Type Severity Reaction Status Date / Time alcohol Allergy Intermediate Headache Verified 10/25/24 13:56 <Lurdes Morris MD - Last Filed: 01/04/25 20:28> Review of Systems Status of ROS: Reports: 6 or more systems reviewed and unremarkable except as noted in History and below <Lurdes Morris MD - Last Filed: 01/04/25 20:28> [facility] Medical History: Medical History (Updated 01/04/25 @ 20:28 by Lurdes Morris MD) Atrial fibrillation ?I48.91 - Unspecified atrial fibrillation (ICD-10) <Lurdes Morris MD - Last Filed: 01/04/25 20:28> Exam Const: Vital Signs, click to edit/add: Vital Signs - 24 hr 01/04/25 18:06 Temperature 98.3 F Pulse Rate [Pulse Oximeter] 102 H Respiratory Rate 16 Blood Pressure [Le ft Upper Arm] 131/89 Pulse Oximetry 97 Oxygen Delivery Me thod Room Air Alex is alert, interactive, no apparent distress, ambulatory into the ED of his own accord. The did watch him ambulate and there are no concerns with his gait baseline. Sclera clear, face atraumatic, speaking in complete sentences. Lungs are clear, good air entry, no wheezing or crackles. CV is slightly fast regular, here no significant murmur, normal S1-S2, no S3-S4. Abdomen is soft, nontender, nondistended, no organomegaly. He has no lower extremity edema. See regular P-waves on his monitor but he is low 100 for the rate. <Lurdes Morris MD - Last Filed: 01/04/25 20:28> Vital Signs, click to edit/add: Vital Signs - 24 hr 01/04/25 18:06 Temperature 98.3 F Pulse Rate [Pulse Oximeter] 102 H Respiratory Rate 16 Blood Pressure [Le ft Upper Arm] 131/89 Pulse Oximetry 97 Oxygen Delivery Me thod Room Air <Yusef Saravia MD - Last Filed: 01/04/25 20:06> Documenting provider has reviewed patient's vital signs: yes <Lurdes Morris MD - Last Filed: 01/04/25 20:28> Course Course ED Course: Will have him observed on cardiac monitoring, pulse oximetry. Will get portable chest x-ray but doubt that he is in congestive heart failure based on clinical evaluation. Will update labs. Will talk to Cardiology, obtain EKG. <Lurdes Morris MD - Last Filed: 01/04/25 20:28> Reevaluation(s) Time of Reevaluation #1: 19:24 <Lurdes Morris MD - Last Filed: 01/04/25 20:28> Reevaluation #1: Reviewed that he is currently in atrial flutter, my conversation with cmm technician. Patient is consented on synchronized cardioversion. <Lurdes Morris MD - Last Filed: 01/04/25 20:28> Time of Reevaluation #2: 20:11 <Lurdes Morris MD - Last Filed: 01/04/25 20:28> Reevaluation #2: Cardioversion was performed using 200 joules. Patient was back in sinus rhythm post cardioversion. EKGs were obtain. Prior to the procedure did confirm with an EKG that he was still in atrial flutter. Patient had brief mild apneic episode responding to roughly 30 seconds of assisted positive pressure ventilation followed by jaw thrust for a few minutes. After that he recovered completely, no complications. Patient was discharge when he met full criteria from conscious sedation protocol. He maintained sinus rhythm on the monitor. Baseline heart rate back in 70s. <Lurdes Morris MD - Last Filed: 01/04/25 20:28> Consultations Consultation #1: Spoke with on-call cmm technician at [facility], Dr. Kim. He does recommend cardioversion. He has an EKG from a couple days ago showing similar atrial flutter with the T-wave having the breed P-wave in it as I am seen on his EKG today. He reportedly was in atrial fibrillation this morning. There is a note in for recommended cardioversion and increasing his sotalol to 80 mg twice a day. I will contact him back if cardioversion is not successful. <Lurdes Morris MD - Last Filed: 01/04/25 20:28> Time: 19:18 <Lurdes Morris MD - Last Filed: 01/04/25 20:28> Vital Signs Vital signs: Initial Vital Signs Temperature 98.3 F 01/04/25 18:06 Temperature Source Temporal Artery Scan 01/04/25 18:06 Pulse Rate 102 H 01/04/25 18:06 Respiratory Rate 16 01/04/25 18:06 Blood Pressure 131/89 01/04/25 18:06 Blood Pressure Mean 103 01/04/25 18:06 Blood Pressure Position Sitting 01/04/25 18:06 Pulse Oximetry 97 01/04/25 18:06 Oxygen Delivery Method Room Air 01/04/25 18:06 Vital Signs Temperature 98.3 F 01/04/25 18:06 Pulse Rate 102 H 01/04/25 18:06 Respiratory Rate 16 01/04/25 18:06 Blood Pressure 131/89 01/04/25 18:06 Pulse Oximetry 97 01/04/25 18:06 Oxygen Delivery Method Room Air 01/04/25 18:06 Temperature 98.3 F 01/04/25 18:06 Pulse Rate 102 H 01/04/25 18:06 Respiratory Rate 16 01/04/25 18:06 Blood Pressure 131/89 01/04/25 18:06 Pulse Oximetry 97 01/04/25 18:06 Oxygen Delivery Method Room Air 01/04/25 18:06 <Lurdes Morris MD - Last Filed: 01/04/25 20:28> Initial Vital Signs Temperature 98.3 F 01/04/25 18:06 Temperature Source Temporal Artery Scan 01/04/25 18:06 Pulse Rate 102 H 01/04/25 18:06 Respiratory Rate 16 01/04/25 18:06 Blood Pressure 131/89 01/04/25 18:06 Blood Pressure Mean 103 01/04/25 18:06 Blood Pressure Position Sitting 01/04/25 18:06 Pulse Oximetry 97 01/04/25 18:06 Oxygen Delivery Method Room Air 01/04/25 18:06 Vital Signs Temperature 98.3 F 01/04/25 18:06 Pulse Rate 102 H 01/04/25 18:06 Respiratory Rate 16 01/04/25 18:06 Blood Pressure 131/89 01/04/25 18:06 Pulse Oximetry 97 01/04/25 18:06 Oxygen Delivery Method Room Air 01/04/25 18:06 Temperature 98.3 F 01/04/25 18:06 Pulse Rate 102 H 01/04/25 18:06 Respiratory Rate 16 01/04/25 18:06 Blood Pressure 131/89 01/04/25 18:06 Pulse Oximetry 97 01/04/25 18:06 Oxygen Delivery Method Room Air 01/04/25 18:06 <Yusef Saravia MD - Last Filed: 01/04/25 20:06> MDM - Arrhythmia/Palpitations Lab Data Attestation: I reviewed the patient's lab results. <Lurdes Morris MD - Last Filed: 01/04/25 20:28> Labs: Lab Results 01/04/25 01/04/25 Range/Units 18:47 19:03 WBC 6.52 (4.50-11.00) K/uL RBC 3.76 L (4.30-5.90) m/uL Hgb 12.6 L (13.5-17.5) gm/dL Hct 36.7 L (37.0-53.0) % MCV 98 (80-100) fL MCH 34 (26-34) pg MCHC 34 (32-36) gm/dL RDW Coeff of Daniel 12.3 (11.5-15.5) % Plt Count 248 (140-440) K/uL Neut % (Auto) 62.2 (42.0-72.0) % Lymph % (Auto) 21.6 (20-44) % Alexander % (Auto) 12.4 H (0.0-11.0) % Eos % (Auto) 3.1 (0.0-7.0) % Baso % (Auto) 0.5 (0.0-3.0) % Neut # (Auto) 4.06 (1.7-7.0) K/uL Lymph # (Auto) 1.41 (0.90-2.90) K/uL Alexander # (Auto) 0.80 (0.00-0.90) K/UL Eos # (Auto) 0.20 (0.00-0.50) K/uL Baso # (Auto) 0.03 (0.00-0.30) K/uL Abs Immat Gran (auto) 0.01 (0.00-0.30) K/uL Imm/Tot Granulo (auto) 0.2 % Sodium 140 (135-149) mmol/L Potassium 4.3 (3.6-5.1) mmol/L Chloride 108 (96-114) mmol/L Carbon Dioxide 24 (20-32) mmol/L Anion Gap 8 (7-15) mEq/L BUN 25 (7-30) mg/dL Creatinine 1.1 (0.5-1.5) mg/dL Estimated Creat Clear 59.77 Estimated GFR 68 ml/min Glucose 94 (60-115) mg/dL Calcium 9.2 (8.4-10.6) mg/dL Magnesium 2.2 (1.5-2.6) mg/dL Troponin I < 0.01 (0.01-0.04) ng/mL Lab Acknowledgement Test Added <Lurdes Morris MD - Last Filed: 01/04/25 20:28> Lab Results 01/04/25 01/04/25 Range/Units 18:47 19:03 WBC 6.52 (4.50-11.00) K/uL RBC 3.76 L (4.30-5.90) m/uL Hgb 12.6 L (13.5-17.5) gm/dL Hct 36.7 L (37.0-53.0) % MCV 98 (80-100) fL MCH 34 (26-34) pg MCHC 34 (32-36) gm/dL RDW Coeff of Daniel 12.3 (11.5-15.5) % Plt Count 248 (140-440) K/uL Neut % (Auto) 62.2 (42.0-72.0) % Lymph % (Auto) 21.6 (20-44) % Alexander % (Auto) 12.4 H (0.0-11.0) % Eos % (Auto) 3.1 (0.0-7.0) % Baso % (Auto) 0.5 (0.0-3.0) % Neut # (Auto) 4.06 (1.7-7.0) K/uL Lymph # (Auto) 1.41 (0.90-2.90) K/uL Alexander # (Auto) 0.80 (0.00-0.90) K/UL Eos # (Auto) 0.20 (0.00-0.50) K/uL Baso # (Auto) 0.03 (0.00-0.30) K/uL Abs Immat Gran (auto) 0.01 (0.00-0.30) K/uL Imm/Tot Granulo (auto) 0.2 % Sodium 140 (135-149) mmol/L Potassium 4.3 (3.6-5.1) mmol/L Chloride 108 (96-114) mmol/L Carbon Dioxide 24 (20-32) mmol/L Anion Gap 8 (7-15) mEq/L BUN 25 (7-30) mg/dL Creatinine 1.1 (0.5-1.5) mg/dL Estimated Creat Clear 59.77 Estimated GFR 68 ml/min Glucose 94 (60-115) mg/dL Calcium 9.2 (8.4-10.6) mg/dL Magnesium 2.2 (1.5-2.6) mg/dL Troponin I < 0.01 (0.01-0.04) ng/mL Lab Acknowledgement Test Added <Yusef Saravia MD - Last Filed: 01/04/25 20:06> Imaging Data Chest x-ray: Attestation: I have reviewed the pertinent imaging results. <Lurdes Morris MD - Last Filed: 01/04/25 20:28> My impression: Appreciate probable cardiomegaly but no overt congestive heart failure my preliminary review. <Lurdes Morris MD - Last Filed: 01/04/25 20:28> Radiologist's impression: Patient: ALEX SARAVIA Facility:?[facility] Patient ID:?[id number] Site Patient ID:?[id number]. Site :?[id number] Study:?XRay-Chest 1V-01/04/2025 7:29:03 PM Ordering Physician:Manasa Chatman Final Report: INDICATION: Arrhythmia. TECHNIQUE: Chest 1 views. COMPARISON: None. FINDINGS: Cardiovasculature and mediastinum: Heart size is normal. Unremarkable mediastinum. Lungs and pleural spaces: Lungs are clear. No sign of infiltrate or mass. No sign of pleural effusion. No pneumothorax. Bones and soft tissues: No significant findings. IMPRESSION: Negative chest. Dictated by Eloy Marin MD @ 01/04/2025 8:11:06 PM (Electronic Signature) <Lurdes Morris MD - Last Filed: 01/04/25 20:28> ECG Data Attestation: I personally reviewed and interpreted this ECG as follows: (Tachycardic at 1:03 a.m., believe this to be atrial flutter with buried P waves within the T-waves in lead V1.) <Lurdes Morris MD - Last Filed: 01/04/25 20:28> ECG interpretation date: 01/04/25 <Lurdes Morris MD - Last Filed: 01/04/25 20:28> ECG interpretation time: 18:32 <Lurdes Morris MD - Last Filed: 01/04/25 20:28> Prior ECG tracings: available for review <Lurdes Morris MD - Last Filed: 01/04/25 20:28> Interpretation: EKG 2. Heart rate was low 100, did an EKG prior to the procedure to confirm that patient was still in atrial flutter and indeed does show atrial flutter EKG 3. Postprocedure EKG obtained and shows sinus rhythm with first-degree AV block, 70 beats per minute. Incomplete right bundle branch block. <Lurdes Morris MD - Last Filed: 01/04/25 20:28> Discharge Plan Discharge Clinical Impression: Encounter for cardioversion procedure Atrial flutter Qualifiers: Atrial flutter type: unspecified Qualified Code(s): I48.92 - Unspecified atrial flutter <Lurdes Morris MD - Last Filed: 01/04/25 20:28> Patient Disposition: Home, Self-Care <Lurdes Morris MD - Last Filed: 01/04/25 20:28> Condition: Stable <Lurdes Morris MD - Last Filed: 01/04/25 20:28> Instructions: Atrial Flutter (ED) <Lurdes Morris MD - Last Filed: 01/04/25 20:28> Additional Instructions: You need to stay on your Xarelto and take as prescribed. It is recommended that you increase your sotalol to 80 mg twice a day per Cardiology. Need to contact the electrophysiology physician tomorrow for further recommendations and follow-up recommendations as well. They may need to send in another prescription for the increased dose of sotalol. <Lurdes Morris MD - Last Filed: 01/04/25 20:28> Activity Level: Activity as Tolerated <Lurdes Morris MD - Last Filed: 01/04/25 20:28> Activity as Tolerated <Yusef Saravia MD - Last Filed: 01/04/25 20:06> Prescriptions: No Action Xarelto 20 mg tablet 20 mg PO DAILY fenofibrate 54 mg tablet 54 mg PO DAILY sotalol 80 mg tablet 80 mg PO DAILY terazosin 10 mg capsule 10 mg PO DAILY diltiazem HCl 120 mg capsule,extended release 24hr 120 mg PO DAILY <Lurdes Morris MD - Last Filed: 01/04/25 20:28> Follow Up/Referrals: Provider,Not a Local [Non-Staff, Family Practice] <Lurdes Morris MD - Last Filed: 01/04/25 20:28> Stand [facility] Inst[facility] <Lurdes Morris MD - Last Filed: 01/04/25 20:28> Procedures Procedural Sedation Pre procedure diagnosis: Atrial flutter <Yusef Saravia MD - Last Filed: 01/04/25 20:06> Post procedure diagnosis: Sinus rhythm <Yusef Saravia MD - Last Filed: 01/04/25 20:06> Written consent by: patient <Yusef Saravia MD - Last Filed: 01/04/25 20:06> Verification/time out: correct patient <Yusef Saravia MD - Last Filed: 01/04/25 20:06> Name of person perfmorming the procedure: Yusef Saravia <Yusef Saravia MD - Last Filed: 01/04/25 20:06> Sedation provider same as procedural provider: No <Yusef Saravia MD - Last Filed: 01/04/25 20:06> Assistants, if any: Dr. Dickerson performed the cardioversion. Dr. Saravia administered meds <Yusef Saravia MD - Last Filed: 01/04/25 20:06> Indication: other (Electrical cardioversion of atrial flutter) <Yusef Saravia MD - Last Filed: 01/04/25 20:06> ASA Class: II <Yusef Saravia MD - Last Filed: 01/04/25 20:06> Time of Last PO Intake: 05:00 (Patient is and p.o. today on 01/04 and last ate yesterday evening on 01/03.) <Yusef Saravia MD - Last Filed: 01/04/25 20:06> Mallampati classification: III. soft palate and base of uvula visible <Yusef Saravia MD - Last Filed: 01/04/25 20:06> Preparation: nuclear monitoring technician applied, pulse oximeter, capnometry used, supplemental O2 applied and reversal agents at bedside <Yusef Saravia MD - Last Filed: 01/04/25 20:06> IV Propofol dose (mg): 90 <Yusef Saravia MD - Last Filed: 01/04/25 20:06> Patient Tolerated Procedure: well <Yusef Saravia MD - Last Filed: 01/04/25 20:06> Complications: none <Yusef Saravia MD - Last Filed: 01/04/25 20:06> Additional Comments: Patient tolerated procedural sedation well. No complications noted. He was cardioverted with a single 200 joule shock with yarsanism of sinus rhythm. <Yusef Saravia MD - Last Filed: 01/04/25 20:06>
--- NOTE | 2025-01-04 18:36 | CRLHL7_ITS ---
For Patients: As a result of the Century Cures Act, medical imaging exams and procedure reports are released immediately into your electronic medical record. You may view this report before your referring provider. If you have questions, please contact your health care provider. INDICATION: Arrhythmia. TECHNIQUE: Chest 1 views. COMPARISON: None. FINDINGS: Cardiovasculature and mediastinum: Heart size is normal. Unremarkable mediastinum. Lungs and pleural spaces: Lungs are clear. No sign of infiltrate or mass. No sign of pleural effusion. No pneumothorax. Bones and soft tissues: No significant findings. IMPRESSION: Negative chest. Dictated by Eloy Marin MD @ 01/04/2025 8:11:06 PM (Electronically Signed)
[2025-01-04 18:56] LABS: Basophils Absolute Auto 0.03 K/uL (0.00-0.30); Basophils Percent Auto 0.5 % (0.0-3.0); Eosinophils Percent Auto 3.1 % (0.0-7.0); Hematocrit 36.7 % (37.0-53.0); Hemoglobin* 12.6 gm/dL (13.5-17.5); Immature Granulocytes Abs Auto 0.01 K/uL (0.00-0.30); Immature Granulocytes Pct Auto 0.2 %; Lymphocytes Absolute Auto 1.41 K/uL (0.90-2.90); Lymphocytes Percent Auto 21.6 % (20-44); Mean Corpuscular HGB Conc 34 gm/dL (32-36); Mean Corpuscular Hemoglobin 34 pg (26-34); Mean Corpuscular Volume 98 fL (80-100); Monocytes Percent Auto 12.4 % (0.0-11.0); Neutrophils Absolute Auto 4.06 K/uL (1.7-7.0); Neutrophils Percent Auto 62.2 % (42.0-72.0); Platelet Count* 248 K/uL (140-440); RDW Coefficient of Variation % 12.3 % (11.5-15.5); Red Blood Count 3.76 m/uL (4.30-5.90); White Blood Count* 6.52 K/uL (4.50-11.00)
[2025-01-04 18:58] LABS: Slide Review Reflex No
[2025-01-04 19:17] LABS: Chloride* 108 mmol/L (96-114); Sodium* 140 mmol/L (135-149)
[2025-01-04 19:18] LABS: Potassium* 4.3 mmol/L (3.6-5.1)
[2025-01-04 19:20] LABS: Anion Gap 8 mEq/L (7-15); Blood Urea Nitrogen* 25 mg/dL (7-30); Carbon Dioxide* 24 mmol/L (20-32); Creatinine* 1.1 mg/dL (0.5-1.5); Est. Creatinine Clearance* 59.77; Estimated Glomerular Filt Rate 68 ml/min
[2025-01-04 19:21] LABS: Calcium* 9.2 mg/dL (8.4-10.6); Glucose* 94 mg/dL (60-115); Magnesium* 2.2 mg/dL (1.5-2.6)
[2025-01-04 19:39] LABS: Troponin I* < 0.01 ng/mL (0.01-0.04)
[2025-01-04] MEDS: PROPOFOL 10 MG/ML INJ 200 MG IVP (20:26)
== END 2025-01-04 21:10 | disposition home or self-care (01) ==
PROVIDERS: Emergency Provider Family Medicine; PCP Family Medicine
DX: I48.92 Unspecified atrial flutter (principal)
CPT/HCPCS: 92960; 36415; 71045; 80048; 83735; 84484; 85025; 93005; 94761; 99156; 99285; J2704

== ENCOUNTER 2025-03-04 14:10 | Emergency (ER) | payer MEDICARE, SELFPAY ==
[2025-03-04 14:15] VITALS: BP 151/88; PULSE 77; RESP 20; TEMP 36.6; O2SAT 97; BMI 29.6
--- OUTSIDE RECORDS SUMMARY | 2025-03-04 14:20 | XMS_ITS | Clinical Summary ---
Author Organization [facility] Address [address] [address] Phone Care Team Providers Care Warehouse Traffic Supervisor Name Role Phone Guillermo Lomeli MD Primary Care Provider [phone] Allergies Active Allergy Reactions Criticality Noted Date Comments Food Headache Medium 09/21/2019 Beer. Caused severe headache, nausea, Medications Nutritional Supplements (GLUCOSAMINE COMPLEX) TABS Take 1 Tablet by mouth every evening. FlexaMin- Glucosamine with Chondrointin, Vit D 3 2000 IU + MSM 2 Active multiple vitamin with minerals (CENTRUM SILVER) tablet Take 1 Tablet by mouth every evening. 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 Never 07/31/2022 Do you belong to any clubs o r organizations such as islam groups, unions, fraternal or athletic groups, or [...] Answer Date Recorded PHQ-2 Total 0 07/31/2022 [facility] - Occupational [...] on file Legal Sex Male 2:55 PM EMPLOYEE RELATIONS REPRESENTATIVE Gender Identity Not on file Sexual Orientation Not on file Occupation Industry Job Start Date Job End Date retire Not on file Not on file Not on file Obstetrics History Last Filed Vital Signs Vital Sign Reading Time Taken Comments Blood Pressure 128/80 08/05/2022 2:19 PM EMPLOYEE RELATIONS REPRESENTATIVE Pulse 45 08/05/2022 2:19 PM EMPLOYEE RELATIONS REPRESENTATIVE Temperature 37.4 C (99.3 F) 08/05/2022 2:19 PM EMPLOYEE RELATIONS REPRESENTATIVE Respiratory Rate 16 08/05/2022 2:19 PM EMPLOYEE RELATIONS REPRESENTATIVE Oxygen Saturation 96% 08/05/2022 2:19 PM EMPLOYEE RELATIONS REPRESENTATIVE Inhaled Oxygen Concentration - - Weight 88.3 kg (194 lb 10.7 oz) 08/05/2022 2:19 PM EMPLOYEE RELATIONS REPRESENTATIVE Height 182 cm (5' 11.65) 08/05/2022 2:19 PM EMPLOYEE RELATIONS REPRESENTATIVE Body Mass Index 26.66 08/05/2022 2:19 PM EMPLOYEE RELATIONS REPRESENTATIVE Plan of Treatment Health Maintenance Due Date [...] Advance Directives For more information, please contact: [phone] * Full Code (Latest Code Status on File) Date Activated Date Inactivated Comments 06/24/2022 9:03 AM 06/24/2022 3:47 PM Care Teams Warehouse Traffic Supervisor Relationship Specialty Start Date End Date Votel, Guillermo Israel MD [address] [place] [address] PCP - General Family Medicine 05/01/24
--- OUTSIDE RECORDS SUMMARY | 2025-03-04 14:20 | XMS_ITS | Encounter Summary ---
Author Organization [facility] Address [address] [address] Phone Care Team Providers Care Maritime Pilot Name Role Phone Juno Isaac MD Primary Care Provider [phone] Guillermo Lomeli MD Primary Care Provider [phone] Encounter Details Date Type Department Care Team (Late st Contact Info) Description 07/08/2022 Prep for Procedure [address] [place] [address] CLINIC ELECTROPHSIOLOGY [address] [place] [address] [id number] Brennen Reich PA-C [address] [place] [address] [phone] Social History Tobacco Use Types Packs/Day Years [...] often do you attend chur ch or bahai services? Never 09/21/2019 Do you belong to any clubs o r organizations such as mandaen groups, unions, fraternal or athletic groups, or [...] Answer Date Recorded PHQ-2 Total 0 06/11/2022 [facility] - Occupational [...] on file Legal Sex Male 2:55 PM BESSEMER BOTTOM MAKER Gender Identity Not on file Sexual Orientation Not on file Occupation Industry Job Start Date Job End Date retire Not on file Not on file Not on file COVID-19 Exposure Response Date Recorded In the last 10 days, have yo u been in contact with someone who was confirmed or suspected to have Coronavirus/COVID-19? No / Unsure 07/06/2022 1:47 PM BESSEMER BOTTOM MAKER documented as of this encounter Plan of Treatment Not on file documented as of this encounter Visit Diagnoses Not on filedocumented in this encounter Additional Health Concerns Infection Onset Date Last Indicated Resolved Time R/O Respiratory Pathogens 07/13/2022 07/13/2022 2:39 PM BESSEMER BOTTOM MAKER R/O COVID-19 07/13/2022 07/13/2022 07/13/2022 2:39 PM BESSEMER BOTTOM MAKER COVID-19 Confirmed 07/13/2022 07/31/2022 3 11:06 PM BESSEMER BOTTOM MAKER documented as of this encounter Care Teams Maritime Pilot Relationship Specialty Start Date End Date Juno Isaac MD [address] [place] [id number] PCP - General Family Medicine 11/30/14 04/30/24 Guillermo Lomeli MD [address] [place] [address] PCP - General Family Medicine 05/01/24 documented as of this encounter
--- OUTSIDE RECORDS SUMMARY | 2025-03-04 14:20 | XMS_ITS | Clinical Summary ---
Author Organization [facility] Address [address] [place] [id number] Care Team Providers Care Beadworker Name Role Phone Votel, Guillermo Pacheco MD [...] mouth once daily with evening meal. 0 09/15/19 23 Active furosemide (LASIX) 20 mg tabletIndications: Typical atrial flutter (HC),History of cardiac radiofrequency ablation Take 1 Tablet (20 mg) by mouth once daily if needed (Goal weight 195. Take for weight increase by 3lbs in one day or 5 lbs in one week). 90 Tablet 1 10/09/19 23 Active dilTIAZem (CARDIZEM) 30 mg tabletIndications: PAF [...] months; Frequency of use: Daily 1 Each 10/03/19 Active dilTIAZem CD 120 mg extended release 24 hr capsuleIndications :Atrial fibrillation, unspecified type (HC) Take 1 Capsule (120 mg) by mouth once daily. 30 Capsule 11 11/08/19 25 Active fenofibrate 54 mg tabletIndications: Hyperlipidemia, unspecified hyperlipidemia type Take 1 Tablet (54 mg) by mouth once daily with a meal. 90 Tablet 3 11/22/19 Active Additional Information Patient taking differently:54 mg OralDAILY WITH EVENING MEAL, Informant: Patient's Recall, Reported on 12/08/2024 rivaroxaban 20 mg tabletIndications: PAF (paroxysmal atrial fibrillation) (HC) Take 1 Tablet (20 mg) by mouth once daily with evening meal. 90 Tablet 11/22/19 Active sotaloL 80 mg tabletIndications: Paroxysmal atrial flutter (HC),Paroxysmal atrial fibrillation (HC) Take 1 Tablet (80 mg) by mouth every 12 hours. for 1 month post-ablation (through 01/08/2025) then ok to stop if you are not having recurrent atrial arrhythmias. 01/05/20 Active Terazosin HCl 10 mg capsuleIndications :HTN (hypertension) Take 1 Capsule (10 mg) by mouth at bedtime. 90 Capsule 3 01/06/20 Active Active Problems Problem Noted Date Diagnosed Date Acute on chronic diastolic (congestive) heart fa ilure 07/11/2024 Chronic diastolic (congestive) heart failure 10/2023 Infrarenal abdominal aortic aneurysm (AAA) witho ut rupture 10/27/2023 Assessment & Plan (07/11/2024 1:25 PM SUPERVISOR ACCOUNTS RECEIVABLE): Repeat abdomen ultrasound October 2026 A-fib 07/20/2023 High cholesterol 07/20/2023 HTN (hypertension) 07/20/2023 BPH (benign prostatic hyperplasia) 07/20/2023 Encounters Date Type Department Care Team Description 01/08/2025 Telephone [facility] [address] [place] [address] Zuleyma Coleman RN F/U EKG 01/08/2025 Travel 01/05/2025 Telephone [facility] [address] [place] [phone] Zuleyma Coleman, RONN F/U 01/05/2025 Refill [facility] [place] [address] [place] [address] Ellen Esquivel MD Refill Request 01/04/2025 10:30 AM CDT Nurse/Clinic Staff Only [facility] [address] [place] [address] Cardiovascular Diagnostic Testing (EKG PER DR. DAWSON ) 01/04/2025 Orders Only [facility] Scanner 1 scan: (1-Ord) [place], XR CHEST 1V PORTABLE, 01/04/2025 01/04/2025 Orders Only [facility] [address] [place] [address] Cass Dawson MD 1 scan: (1-Ord) NFLD-EKG-01/04/25 01/04/2025 Travel 01/02/2025 Telephone [facility] [place] [address] [place] [address] Ellen Esquivel MD Concerns 12/12/2024 Telephone [facility] [address] [place] [phone] Guillermo Doss MD Post Procedure 12/08/2024 1:34 PM CDT Anesthesia Event [facility] [address] [place] [address] Marty Nash CRNA 12/08/2024 10:48 AM CDT - 12/09/2024 10:52 AM CDT Hospital Encounter [facility] [address] [place] [address] [place] Dawson MD Katsiyiannis, William Thomas, MD Taylor, Amado Eldridge MD Atypical atrial flutter (HC) (Primary Dx); Paroxysmal atrial flutter (HC); Paroxysmal atrial fibrillation (HC) Discharge Disposition: Home Self Care 12/08/2024 Travel 12/06/2024 1:00 PM CDT Orders Only [facility] [address] [facility] [address] [place] [address] Lab 12/06/2024 1:00 PM CDT Ancillary Procedure [facility] [address] [facility] [address] [place] [address] 12/06/2024 Travel from Last 3 Months Immunizations Immunization Administration Dates Next Due COVID-19 vaccine (Moderna 100mcg/0.5mL) PF, MDV 10/01/2020,09/03/2020 Pneumococcal Poly,23-Valent (Pneumovax) 08/30/19 14 Pneumococcal [...] on file Legal Sex Male 7:43 AM SUPERVISOR ACCOUNTS RECEIVABLE Gender Identity Not on file Sexual Orientation Not on file 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 Not on file Not on file [...] 182.5 cm (5' 11.85) 10/03/2024 3:[address] Body Mass Index 29.74 10/03/2024 3:49 PM SUPERVISOR ACCOUNTS RECEIVABLE Plan of Treatment Health Maintenance Due Date Last Done Comments Hepatitis C screening for age 18-79 1963 Zoster (shingles) series for age 50+ (1 of 2) 1995 RSV vaccine for adults or (1 - 1-dose 75+ series) 2020 COVID-19 vaccine series ( season) 2024 10/01/2020, 09/03/2020 Influenza Vaccine (#1) 2025 Depression screening for age 12+ 07/11/2025 07/11/2024, 10/12/2023 Medicare Wellness for age 65+ 07/12/2025 07/11/2024, 07/20/2023 BMI (ht and wt on same day) for age 18+ 10/03/2025 10/03/2024, 07/11/2024, 10/12/2023, Additional history exists Tetanus booster 06/16/2031 06/16/2021, 04/10, 11/27/1996, Additional history exists Pneumococcal series for age 50+ Completed 03/23/2018, 08/30/2013 Hepatitis B series for 19+ Aged Out N o longer eligible based on patient's age to complete this topic Procedures Procedure Name Priority Date/Time Associated Diagnosis Comments EKG 12 LEAD Routine 01/08/2025 3:27 PM CDT Persistent atrial fibrillation (HC) EKG 12 LEAD Routine 01/04/2025 2:32 PM CDT Persistent atrial fibrillation (HC) SCAN-RADIOLOGY REPORT 01/04/2025 12:00 AM CDT SCAN-CARDIAC STRIP 12/09/2024 8: 10 AM CDT [...] 12:1 8 PM CDT Preprocedural cardiovascular examination from Last 3 Months Results * EKG 12 LEAD (01/08/2025 3:27 PM CDT) Only the most recent of4 resultswithin the time period is included. Interpretation Sinus bradycardia with 1st degree A-V block Otherwise normal ECG When compared with ECG of 09-Dec-2024 06:08, No significant change was found Ventricular Rate 56 BPM Atrial Rate 56 BPM P-R Interval 254 ms QRS Duration 92 ms QT 430 ms QTc 414 ms P [place] 78 degrees R [place] -5 degrees T [place] 5 degrees 01/08/2025 3:27 PM CDT 01/09/2025 8:52 AM CDT [place] Dawson MD EKG ORD Fin al Result * SCAN-RADIOLOGY REPORT (01/04/2025 12:00 AM CDT) Anatomical Region Laterality Modality Other us Scanner OTHER Final Result * SCAN-CARDIAC STRIP (12/09/2024 8:10 AM CDT) us Scanner OTHER Final Result * SCAN-CARDIAC STRIP (12/08/2024 8:51 PM CDT) us Scanner OTHER Final Result * (ABNORMAL) ACTIVATED CLOTTING TIME [id number] ACT (12/08/2024 5:48 PM CDT) Only the most recent of6 resultswithin the time period is included. ACTIVATED CLOTTING TIME, POCT 178(H) 74 - 125 sec 12/08/2024 5:53 PM CDT [facility] Blood BLOOD SPECIMEN / Unknown 12/08/2024 5:48 PM CDT 12/08/2024 5:53 PM CDT us [place] Dawson MD HEMATOLOGY Fin al Result [facility] [address] [place] [address], * EP STUDY /ABLATION (12/08/2024 2:07 PM CDT) Anatomical Region Laterality Modality X-Ray Angiograph y, X-Ray Angiography 12/08/2024 2:07 PM CDT Narrative Procedure Note [place] Dawson MD - 12/08/2024 5:[address] [facility] Electrophysiology Procedure/Implant Report Name: JUANJO TERRAZAS Event Date: 12/08/2024 [facility] ID #: [id number] Date: 1945 Gender: Male Age: 79 [facility] #: [id number] Procedure Performed By: C[place] DAWSON [facility] Referring Physician: Dr. Ellen Esquivel Primary Care [...] anticoagulation with Rivaroxaban (or alternativeagent) indefinitely given [id number] risk score of 4 and HASBLED score [...] lab and taken to the post anesthesia careunit in stable condition. The procedure was tolerated well and there wereno immediate complications noted. Electrophysiology Study Data Basic Intervals Study State Underlying Rhythm Cycle Length AR PA AH HV QRS [place] QRSMorphology Baseline Atrial Flutter [phone] Post [...] See Anesthesia Note Total Flouro Time: 0 BATTERY STARTER Total Flouro Dose: 0 mGy Transseptal Mean LA Pressure: 14 mmHg Staff Name Role [place] Sueding Machine Tender Maria Guadalupe Patricia RN Nurse Cintia Serrano EPT Monitor Darci Trevizo Kelly NP Brewery Pumper Medications Ordered and Administered Start Time Stop Time Medication Dose Units Route Ordered By Given By 14:09 0.25% Bupivicaine 10 mL Subcut MD Cass Duarte MD 14:09 1% Lidocaine Hydrochloride 10 mL Subcut MD [place] Duarte MD 14:13 Heparin [id number] Units IV MD Maira Guadalupe Duarte RN 14:58 Atropine Sulfate 0.4 [...] with status of Final [place] Dawson MD Sueding Machine Tender [facility] [address] [place] [address] (p) [phone](f) [place] Dawson MD CV IMAGING Ottoniel jaime Result - Final * HCHG TUBE PR1, HCHG INSTRUMENT DISP PR10, HCHG STYLET PR1 (12/08/2024 1:49 PM CDT) Narrative Marty Nash, ROBOTIC WELD TECHNICIAN - 12/08/2024 1:49 PM CDT Marty Nash CRNA 12/08/2024 1:49 PM Procedure: ETT Patient location [...] 11.0 thou/cu mm 12/08/2024 12:16 PM CDT [facility] RED BLOOD COUNT 4.06(L) 4.30 - 5.90 mil/cu mm 12/08/2024 12:16 PM CDT [facility] HEMOGLOBIN 13.3(L) 13.5 - 17.5 g/dL 12/08/2024 12:16 PM CDT [facility] HEMATOCRIT 39.1 37.0 - 53.0 % 12/08/2024 12:16 PM CDT [facility] MCV 96 80 - 100 fL 12/08/2024 12:16 PM CDT [facility] MCH 32.8 26.0 - 34.0 pg 12/08/2024 12:16 PM CDT [facility] MCHC 34.0 32.0 - 36.0 g/dL 12/08/2024 12:16 PM CDT [facility] RDW 12.1 11.5 - 15.5 % 12/08/2024 12:16 PM CDT [facility] PLATELET COUNT 252 140 - 440 thou/cu mm 12/08/2024 12:16 PM CDT [facility] MPV 9.8 6.5 - 11.0 fL 12/08/2024 12:16 PM CDT [facility] NRBC 0.0 % 12/08/2024 12:16 PM CDT [facility] ABS NRBC 0.0 thou /cu mm 12/08/2024 12:16 PM CDT [facility] Blood BLOOD SPECIMEN / Unknown Butterfly / Unknown 12/08/2024 11:46 AM CDT 12/08/2024 12:06 PM CDT us [place] Dawson MD HEMATOLOGY Fin al Result [facility] [address] [place] [address], * (ABNORMAL) Basic Metabolic Panel (12/08/2024 11:46 AM CDT) SODIUM 139 136 - 145 mmol/L 12/08/2024 12:37 PM CDT [facility] POTASSIUM 4.5 3.5 - 5.1 mmol/L 12/08/2024 12:37 PM T [facility] CHLORIDE 106 98 - 107 mmol/L 12/08/2024 12:37 PM T [facility] CO2,TOTAL 21(L) 22 - 29 mmol/L 12/08/2024 12:37 PM T [facility] ANION GAP 12 5 - 18 12/08/2024 12:37 PM T [facility] GLUCOSE 105(H) 70 - 99 mg/dL 12/08/2024 12:37 PM T [facility] CALCIUM 9.0 8.8 - 10.4 mg/dL 12/08/2024 12:37 PM T [facility] Comment: Reference ranges for this test were updated on 06/13/2024 to reflect our healthy population more accurately. Reference range changes are not retroactively applied to results, but previous results using the same methodology can be interpreted in the context of the new reference range. BUN 22 8 - 23 mg/dL 12/08/2024 12:37 PM T [facility] CREATININE 1.17 0.70 - 1.20 mg/dL 12/08/2024 12:37 PM T [facility] BUN/CREAT RATIO 19 10 - 20 12:37 PM T [facility] eGFR 63(L) >90 mL/min/1. 73m2 12/08/2024 12:37 PM T [facility] Comment:As of 2021, eG [...] [place] Dawson MD CHEMISTRY Fin al Result [facility] [address] [place] [address], [place] * SCAN-CARDIAC STRIP (12/08/2024 12:00 AM CDT) Narrative 12/08/2024 12:00 AM CDT Ordered by an unspecified provider. Other Clinical Staff OTHER Final Resul t [...] coronary calcification incidentally noted. Donnie Granger MD [facility] FOR PATIENT: Results are automatically released to your [employer] ([employer] ([employer])) account once available, in compliance with federal regulations. This means that you may see your results before your provider has had a chance to review them. Please allow 2-3 business days for your provider to comment on the results. [place] Dawson MD CT Fin al Result * CT CARDIAC MORPHOLOGY W RAD DUAL READ (12/06/2024 1:05 PM CDT) Anatomical Region Laterality Modality HEART Computed Tomogra phy 12/06/2024 9:26 PM CDT Narrative 12/06/2024 9:26 PM CDT For Patients: As a result of the Cures Act, medical imaging exams and procedure [...] conjunction with the services provided by the [facility] ([facility]). INDICATION: Cardiac [...] in conjunction with the services provided bythe [facility] ([facility]). INDICATION: Cardiac [...] E, ISTAT 1.4(H) 0.6 - 1.3 mg/dL [facility] ( Blood BLOOD SPECIMEN / Unknown 12/06/2024 12:18 PM CDT 12/06/2024 12:19 PM CDT [place] Dawson MD CHEMISTRY Fin al Result [facility] [address] [place] [address], [facility] ( [address] [place] [address] from Last 3 Months Insurance BLUE CROSS [...] Comments Code Status Discussion: Other Care Teams Beadworker Relationship Specialty Start Date End Date Votel, Guillermo Pacheco MD [address] [place] [address] PCP - General Family Practice 01/18/24
--- OUTSIDE RECORDS SUMMARY | 2025-03-04 14:21 | XMS_ITS | Clinical Summary ---
Author Organization [facility] Address [address] [place] [address] Care Team Providers Care Vice Admiral Name Role Phone Unavailable Primary Care Provider Unavailabl e Source Comments Patient records contain information from all sites at [facility]. For routine questions regarding patient records, call [phone] during business hours, M-F 8:00 AM - 5:00 PM Central Time. 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 Gender Identity Not on file Sexual Orientation Not on file Plan of Treatment Health Maintenance Due Date Last Done Comments Hepatitis C Screening 1945 Zoster Vaccines (1 of 2) 1995 RSV vaccine - (32-3 6 weeks) or 60+ years (1 - 1-dose 75+ series) 2020 COVID-19 Vaccine (3 - 2023-2 5 season) 2024 10/01/2020, 09/03/2020 Depression Screening (Annual PHQ-2) 08/09/2024 Fall Risk Screen (Annual) 08/09/2024 Influenza Vaccine (#1) 2025 DTaP,Tdap,and Td Vaccines (3 - Td or Tdap) 06/16/2031 06/16/2021, 05/07/2010, 02/27/1993 Pneumococcal vaccine (50+ years) Completed 03/23/2018, 08/30/2013 IPV Vaccines Aged Out No longer eligi ble based on patient's age to complete this topic Insurance [facility]
--- NOTE | 2025-03-04 14:27 | CRLHL7_ITS ---
For Patients: As a result of the Century Cures Act, medical imaging exams and procedure reports are released immediately into your electronic medical record. You may view this report before your referring provider. If you have questions, please contact your health care provider. INDICATION: Fall. COMPARISON: None available. TECHNIQUE: Two views of the thoracic spine. FINDINGS: Normal alignment. Well maintained vertebral body heights. Well maintained intervertebral disc space heights. Normal paraspinal soft tissues. IMPRESSION: No acute traumatic injury is identified. Dictated by Chris Haddad MD @ 03/04/2025 3:02:07 PM (Electronically Signed)
--- NOTE | 2025-03-04 14:28 | CRLHL7_ITS ---
For Patients: As a result of the Cures Act, medical imaging exams and procedure reports are released immediately into your electronic medical record. You may view this report before your referring provider. If you have questions, please contact your health care provider. INDICATION: Fall. No additional clinical history. COMPARISON: None available. TECHNIQUE: CT of the head without intravenous contrast. Please note that all CT scans at this facility use dose modulation, iterative reconstruction, and/or weight-based dosing when appropriate to reduce radiation dose to as low as reasonably achievable. FINDINGS: No acute traumatic injury is identified. No acute infarct. No intracranial mass or mass effect. No hydrocephalus. No intracranial hemorrhage. RapidAI ASPECTS Score: Not performed/available at the time of dictation. Intact skull base and cranial vault. Right phthisis bulbi. Visualized orbits are otherwise without significant incidental findings. Bilateral mild maxillary sinus floor mucosal thickening, possibly a odontogenic in nature as periapical lucencies are noted in the maxillary alveolar ridges. The visualized paranasal sinuses and mastoid air cells are otherwise clear. Left-sided nasal septal spur. Unremarkable soft tissues. IMPRESSION: 1. No acute traumatic injury is identified. 2. No significant incidental findings. 3. Additional findings as above. Please note that all CT scans at this facility use dose modulation, iterative reconstruction, and/or weight-based dosing when appropriate to reduce radiation dose to as low as reasonably achievable. Dictated by Chris Haddad MD @ 03/04/2025 2:58:29 PM (Electronically Signed)
--- NOTE | 2025-03-04 14:28 | CRLHL7_ITS ---
For Patients: As a result of the Century Cures Act, medical imaging exams and procedure reports are released immediately into your electronic medical record. You may view this report before your referring provider. If you have questions, please contact your health care provider. INDICATION: Fall. COMPARISON: None available. TECHNIQUE: Two views of the lumbar spine (3 images). FINDINGS: Transitional lumbosacral anatomy with sacralization of L5 including enlarged and dysplastic L5 transverse processes with pseudoarthrosis with the bilateral sacral ala. Normal alignment. Chronic appearing mild wedging of the superior L3 vertebral body endplate. No condensation of trabecular bone or cortical angulation/step-off to indicate an acute fracture. Advanced disc degeneration at L4-L5. Normal paraspinal soft tissues. IMPRESSION: No acute traumatic injury is identified. Incidental findings detailed in the body of the report. Dictated by Chris Haddad MD @ 03/04/2025 3:04:12 PM (Electronically Signed)
--- NOTE | 2025-03-04 14:28 | CRLHL7_ITS ---
For Patients: As a result of the Century Cures Act, medical imaging exams and procedure reports are released immediately into your electronic medical record. You may view this report before your referring provider. If you have questions, please contact your health care provider. INDICATION: Fall. No additional clinical history is given. COMPARISON: None available. TECHNIQUE: CT of the cervical spine without intravenous contrast. Please note that all CT scans at this facility use dose modulation, iterative reconstruction, and/or weight-based dosing when appropriate to reduce radiation dose to as low as reasonably achievable. FINDINGS: Alignment: No significant spondylolisthesis, widening of the intervertebral disc spaces, interfacetal joints or interspinous distances. Vertebrae: Vertebral bodies, pedicles, laminae, articular, transverse and spinous processes are intact. Advanced disc degeneration at C5-C6 and C6-C7. Bilateral multilevel facet joint osteoarthrosis. Advanced bilateral uncovertebral osteoarthrosis C5-C6 and C6-C7. Soft Tissues: No perivertebral edema or hemorrhage. Extraspinal Anatomy: No significant findings. IMPRESSION: No acute traumatic injury is identified. Incidental findings described in the body of the report. Please note that all CT scans at this facility use dose modulation, iterative reconstruction, and/or weight-based dosing when appropriate to reduce radiation dose to as low as reasonably achievable. Dictated by Chris Haddad MD @ 03/04/2025 3:01:05 PM (Electronically Signed)
--- NOTE | 2025-03-04 14:39 | ED.GENADULT ---
HPI - General Adult General Chief complaint: Fall/Minor Trauma Stated complaint: fell down stairs Time Seen by Provider: 03/04/25 14:15 History of Present Illness HPI narrative: Patient is a 79 year white male who has been cardioverted for AFib rapid rate in the past he is on novel anticoagulant, he fell and fell down some stairs he injured his mid back read has an abrasion in his thoracolumbar junction area he also has a scratch on the right side of his head that was bleeding and now it stopped. He has no real complaint of neck pain. He simply lost his balance. He did not report significant headache or head pain. He denies focal neurologic finding he had no chest pain or breathing problem no recent illness. He has been in AFib in the past. He is also on diltiazem and sotalol. Patient denies abdominal or chest pain. He presents via ambulance with a trauma team activation. He denies back pain and he has a An coma Scale of 15. Related Data Home Medications ?Medication ?Instructions ?Recorded ?Confirmed fenofibrate 54 mg tablet 54 mg PO DAILY 09/25/23 01/04/25 rivaroxaban 20 mg tablet (Xarelto) 20 mg PO DAILY 09/25/23 01/04/25 sotalol 80 mg tablet 80 mg PO DAILY 09/25/23 01/04/25 terazosin 10 mg capsule 10 mg PO DAILY 09/25/23 01/04/25 diltiazem HCl 120 mg 120 mg PO DAILY 01/04/25 01/04/25 capsule,extended release 24 hr Allergies Allergy/AdvReac Type Severity Reaction Status Date / Time alcohol Allergy Intermediate Headache Verified 10/25/24 13:56 Review of Systems Status of ROS: Reports: 6 or more systems reviewed and unremarkable except as noted in History and below [facility] Medical History Atrial fibrillation ?I48.91 - Unspecified atrial fibrillation (ICD-10) Social History Smoking Status: Never smoker How often do you have a drink containing alcohol: monthly or less AUDIT-C Alcohol total score: 1 Non-prescribed substance use: denies use service: No Exam Narrative: Exam Narrative: Objective patient is alert very pleasant no apparent distress: Primary survey is unremarkable Secondary survey: He has got an abrasion on his right parietal area. Otherwise HEENT unremarkable no palpable step-offs noted about his head Neck nontender midline range of motion normal Neurologic in upper lower extremities nonfocal Pulses regular occasional ectopic beat noted Chest back abdomen pelvis stable and unremarkable to palpation he does have a mild scratch in the abrasion on his mid back at his thoracolumbar junction. He has got mild tenderness around that area and will get an x-ray of his thoracolumbar spine. Pelvis is stable hips move normally no tenderness to palpation of the hips lower extremities unremarkable and nontender Patient is able to sit up easily and let me examine his back, there is only a slight abrasion there Const: Vital Signs, click to edit/add: Vital Signs - 24 hr 03/04/25 14:15 Temperature 97.9 F Pulse Rate [Pulse Oximeter] 77 Respiratory Rate 20 Blood Pressure [Le ft Upper Arm] 151/88 H Pulse Oximetry 97 Oxygen Delivery Me thod Room Air Course Vital Signs Vital signs: Initial Vital Signs Temperature 97.9 F 03/04/25 14:15 Temperature Source Temporal Artery Scan 03/04/25 14:15 Pulse Rate 77 03/04/25 14:15 Respiratory Rate 20 03/04/25 14:15 Blood Pressure 151/88 H 03/04/25 14:15 Blood Pressure Mean 109 H 03/04/25 14:15 Blood Pressure Position Supine 03/04/25 14:15 Pulse Oximetry 97 03/04/25 14:15 Oxygen Delivery Method Room Air 03/04/25 14:15 Vital Signs Temperature 97.9 F 03/04/25 14:15 Pulse Rate 77 03/04/25 14:15 Respiratory Rate 20 03/04/25 14:15 Blood Pressure 151/88 H 03/04/25 14:15 Pulse Oximetry 97 03/04/25 14:15 Oxygen Delivery Method Room Air 03/04/25 14:15 Temperature 97.9 F 03/04/25 14:15 Pulse Rate 77 03/04/25 14:15 Respiratory Rate 20 03/04/25 14:15 Blood Pressure 151/88 H 03/04/25 14:15 Pulse Oximetry 97 03/04/25 14:15 Oxygen Delivery Method Room Air 03/04/25 14:15 Medical Decision Making MDM Narrative Medical decision making narrative: [age] white male on novel anticoagulant with a fall on stairs with an abrasion on his mid lower back. And an abrasion to his right parietal area. At this point we will clean up his head wound and simply cover wit bacitracin . Will get a CT scan of his head and neck for completeness. Because of his blood thinner will also. Will also get x-rays of her thoracolumbar spine. Disposition pending findings above. At this point I do not see any other imaging need to look at his chest or abdomen given their benign nature and no findings of bruising or tenderness, and the nature of his fall. Addendum 3:00 p.m.: The patient is neck and head CT showed chronic degenerative changes but no acute traumatic findings. Thoracic spine by my review is unremarkable, lumbar spine shows significant degenerative disc disease mild malalignment but no obvious fractures. Patient will be allowed to go home, light activity, would hold his novel anticoagulant for 1 day and then may restart. Risk of bleeding at this point from a head contusion would be very small given his negative CT scan but think at hold at 1 day. Follow up with regular doctor next few days, may consider some physical therapy assessment for gait training and balance assessment. Patient family comfortable plan. Lab Data Labs: Lab Results 03/04/25 Range/Units 14:30 WBC 6.67 (4.50-11.00) K/uL RBC 4.09 L (4.30-5.90) m/uL Hgb 13.3 L (13.5-17.5) gm/dL Hct 39.7 (37.0-53.0) % MCV 97 (80-100) fL MCH 33 (26-34) pg MCHC 34 (32-36) gm/dL RDW Coeff of Daniel 12.3 (11.5-15.5) % Plt Count 321 (140-440) K/uL Neut % (Auto) 60.1 (42.0-72.0) % Lymph % (Auto) 22.3 (20-44) % [place] % (Auto) 13.3 H (0.0-11.0) % Eos % (Auto) 3.4 (0.0-7.0) % Baso % (Auto) 0.6 (0.0-3.0) % Neut # (Auto) 4.00 (1.7-7.0) K/uL Lymph # (Auto) 1.49 (0.90-2.90) K/uL [place] # (Auto) 0.90 (0.00-0.90) K/UL Eos # (Auto) 0.23 (0.00-0.50) K/uL Baso # (Auto) 0.04 (0.00-0.30) K/uL Abs Immat Gran (auto) 0.02 (0.00-0.30) K/uL Imm/Tot Granulo (auto) 0.3 % Sodium 140 (135-149) mmol/L Potassium 4.6 (3.6-5.1) mmol/L Chloride 108 (96-114) mmol/L Carbon Dioxide 23 (20-32) mmol/L Anion Gap 9 (7-15) mEq/L BUN 24 (7-30) mg/dL Creatinine 1.2 (0.5-1.5) mg/dL Estimated Creat Clear 54.79 Estimated GFR 62 ml/min Glucose 106 (60-115) mg/dL Calcium 9.4 (8.4-10.6) mg/dL Discharge Plan Discharge Clinical Impression: Fall, Abrasion of scalp, Acute thoracic back pain Patient Disposition: Home w/ Parent or Adult Condition: Stable Additional Instructions: Light activity for the next several days, hold your blood thinner for 1 day and then may restart the next day. Watch for redness or infection here scalp abrasion Recheck with regular doctor next 5-7 days, consideration of physical therapy assessment for core strength and gait training given your fall today. Activity Level: Light activity Discharge Diet: Regular Prescriptions: No Action Xarelto 20 mg tablet 20 mg PO DAILY fenofibrate 54 mg tablet 54 mg PO DAILY sotalol 80 mg tablet 80 mg PO DAILY terazosin 10 mg capsule 10 mg PO DAILY diltiazem HCl 120 mg capsule,extended release 24hr 120 mg PO DAILY Follow Up/Referrals: Guillermo Lomeli MD [Primary Care Provider, Family Practice] Stand Alone Forms: MyHealth Info Instructions
[2025-03-04 14:53] LABS: Chloride* 108 mmol/L (96-114); Sodium* 140 mmol/L (135-149)
[2025-03-04 14:54] LABS: Potassium* 4.6 mmol/L (3.6-5.1)
[2025-03-04 14:56] LABS: Blood Urea Nitrogen* 24 mg/dL (7-30); Creatinine* 1.2 mg/dL (0.5-1.5); Est. Creatinine Clearance* 54.79; Estimated Glomerular Filt Rate 62 ml/min
[2025-03-04 14:57] LABS: Anion Gap 9 mEq/L (7-15); Calcium* 9.4 mg/dL (8.4-10.6); Carbon Dioxide* 23 mmol/L (20-32); Glucose* 106 mg/dL (60-115)
[2025-03-04 15:11] LABS: Hematocrit 39.7 % (37.0-53.0); Hemoglobin* 13.3 gm/dL (13.5-17.5); Immature Granulocytes Abs Auto 0.02 K/uL (0.00-0.30); Immature Granulocytes Pct Auto 0.3 %; Lymphocytes Absolute Auto 1.49 K/uL (0.90-2.90); Mean Corpuscular HGB Conc 34 gm/dL (32-36); Mean Corpuscular Hemoglobin 33 pg (26-34); Mean Corpuscular Volume 97 fL (80-100); RDW Coefficient of Variation % 12.3 % (11.5-15.5); Red Blood Count 4.09 m/uL (4.30-5.90); White Blood Count* 6.67 K/uL (4.50-11.00)
[2025-03-04 15:16] LABS: Slide Review Reflex No
== END 2025-03-04 15:15 | disposition home or self-care (01) ==
PROVIDERS: Emergency Provider Family Medicine; PCP Family Medicine
DX: M54.6 Pain in thoracic spine (principal); S00.01XA Abrasion of scalp, initial encounter; W10.9XXA Fall (on) (from) unspecified stairs and steps, initial encounter
CPT/HCPCS: 36415; 70450; 72070; 72100; 72125; 80048; 85025; 99284; 99291